=== PATIENT | male | born 1940 ===

== ENCOUNTER 2022-03-28 19:50 | Inpatient (IN) | payer OTHER, MEDICARE ==
[~2022-03-28] VITALS: Ht 177.8 cm; Wt 83.4 kg
[2022-03-28 20:09] LABS: BASOPHILS ABSOLUTE AUTO 0.03 K/mm3 (0.00-0.23); BASOPHILS PERCENT AUTO 0 % (0-2); EOSINOPHILS ABSOLUTE AUTO 0.12 K/mm3 (0.00-0.68); EOSINOPHILS PERCENT AUTO 1 % (0-6); Hematocrit 31.4 % (37.0-53.0); Hemoglobin 11.2 g/dL (13.5-17.5); IMMATURE GRAN ABSOLUTE AUTO 0.15 K/mm3 (0.00-0.10); IMMATURE GRAN PERCENT AUTO 2 % (0-1); LYMPHOCYTES ABSOLUTE AUTO 3.18 K/mm3 (0.84-5.20); LYMPHOCYTES PERCENT AUTO 36 % (21-46); MONOCYTES ABSOLUTE AUTO 0.33 K/mm3 (0.16-1.47); MONOCYTES PERCENT AUTO 4 % (4-13); Mean Corpuscular HGB 33.7 pg (26.0-34.0); Mean Corpuscular HGB Conc 35.7 g/dL (31.5-36.5); Mean Corpuscular Volume 95 fL (80-100); Mean Platelet Volume 10.4 fL (9.1-12.4); NEUTROPHILS ABSOLUTE AUTO 5.14 K/mm3 (1.96-9.15); NEUTROPHILS PERCENT AUTO 58 % (41-73); Platelet Count 265 K/mm3 (150-400); RDW Coefficient Variation 13.2 % (11.7-14.2); RDW Standard Deviation 45.5 fL (35.1-46.3); Red Blood Cell Count 3.32 M/mm3 (4.30-5.90); White Blood Cell Count 8.95 K/mm3 (4.00-11.30)
[2022-03-28 20:24] LABS: Alanine Aminotransfer (ALT/SGP 65 U/L (12-78); Albumin, Blood 3.2 g/dL (3.4-5.0); Albumin/Globulin Ratio 0.9 (0.8-1.8); Alk Phos 64 U/L (50-136); Anion Gap 7 mmol/L (6-16); Aspartate Aminotrans (AST/SGOT 50 U/L (12-37); Bilirubin, Total 0.5 mg/dL (0.1-1.0); Blood Urea Nitrogen 9 mg/dL (8-24); Bun/Creatinine Ratio 12.9 (12.0-20.0); CO2, Blood 27 mmol/L (21-32); Calcium, Blood 9.2 mg/dL (8.5-10.1); Chloride, Blood 100 mmol/L (98-108); Globulin, Blood 3.4 g/dL (2.2-4.0); Glomerular Filtration Rate 93 (60-); Glucose, Blood 241 mg/dL (70-99); Potassium, Blood 3.8 mmol/L (3.5-5.5); Sodium, Blood 134 mmol/L (136-145); Total Protein, Blood 6.6 g/dL (6.4-8.2)
[2022-03-28 20:28] LABS: International Normalized Ratio 1.09; Prothrombin Time Results 11.4 Sec (9.7-11.5)
[2022-03-28 23:05] LABS: Calcium, Ionized (POC) 1.14 mmol/L (1.10-1.46); Chloride (POC) 96 mmol/L (98-108); Creatinine (POC) 0.6 mg/dL (0.8-1.3); Glucose (ISTAT POC) 297 mg/dL (70-99); Hemoglobin (POC) 8.2 g/dL (13.5-17.5); Potassium (POC) 3.7 mmol/L (3.5-5.5); Sodium (POC) 131 mmol/L (135-148); Total CO2 (POC) 22 mmol/L (21-32)
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
--- NOTE | 2022-03-29 02:30 | NUR ---
WORSENING PAIN PATIENT C/O PAIN 10/10 1 HR AFTER RECEIVING FENTANYL 25 MCG IV. CALL MADE TO DR. CAMPOS TO REQUEST NEW ORDERS. ORDERS FOR FENTANYL INCREASE TO 25-50MCG IV Q1H PRN.
[2022-03-29 04:33] LABS: BASOPHILS PERCENT AUTO 0 % (0-2); EOSINOPHILS PERCENT AUTO 0 % (0-6); Hematocrit 20.9 % (37.0-53.0); Hemoglobin 7.4 g/dL (13.5-17.5); IMMATURE GRAN ABSOLUTE AUTO 0.03 K/mm3 (0.00-0.10); IMMATURE GRAN PERCENT AUTO 1 % (0-1); LYMPHOCYTES ABSOLUTE AUTO 0.65 K/mm3 (0.84-5.20); LYMPHOCYTES PERCENT AUTO 11 % (21-46); MONOCYTES ABSOLUTE AUTO 0.37 K/mm3 (0.16-1.47); MONOCYTES PERCENT AUTO 6 % (4-13); Mean Corpuscular HGB 33.2 pg (26.0-34.0); Mean Corpuscular HGB Conc 35.4 g/dL (31.5-36.5); Mean Corpuscular Volume 94 fL (80-100); Mean Platelet Volume 10.3 fL (9.1-12.4); NEUTROPHILS ABSOLUTE AUTO 5.09 K/mm3 (1.96-9.15); NEUTROPHILS PERCENT AUTO 83 % (41-73); Platelet Count 116 K/mm3 (150-400); RDW Coefficient Variation 13.6 % (11.7-14.2); RDW Standard Deviation 46.5 fL (35.1-46.3); Red Blood Cell Count 2.23 M/mm3 (4.30-5.90); White Blood Cell Count 6.14 K/mm3 (4.00-11.30)
[2022-03-29 04:50] LABS: Source, Urine Foley catheter
[2022-03-29 04:59] LABS: Bun/Creatinine Ratio 18.2 (12.0-20.0); Calcium, Blood 7.6 mg/dL (8.5-10.1); Creatinine, Blood 0.5 mg/dL (0.60-1.20)
[2022-03-29 05:00] LABS: Bilirubin, Urine Neg (Neg); Blood, Urine 2+ (Neg); Glucose Qualitative, Urine 4+ (Neg); Ketones, Urine Neg (Neg); Leukocyte Esterase, Urine 1+ (Neg); Nitrite, Urine Neg (Neg); Protein, Urine 1+ (Neg); Urobilinogen, Urine NORM (Normal)
[2022-03-29 05:10] LABS: Appearance, Urine Clear (Clear); Color, Urine Yellow (P-Yellow)
[2022-03-29 05:11] LABS: Bacteria Not Seen /hpf; Red Blood Cells, Urine 0-2 /hpf (0-2); Squamous Epithelial Cells Not Seen /hpf (Few); White Blood Cells, Urine 0-2 /hpf (0-5)
--- NOTE | 2022-03-29 06:00 | NUR ---
ASSUMED CARE REPORT RECEIVED FROM GISSELLE MERAZ. THIS NURSE ASSUMING CARE OF PT. AM LABS RESULTING IN H&H DECREASING, DR. CAMPOS NOTIFIED, NEW ORDERS FOR PRBC'S, FFP, AND PLATELETS, AWAITING PRODUCTS FROM LAB AT THIS TIME. NO CHANGES IN PAIN REPORTED FROM PATIENT, NO OBVIOUS SIGNS OF BLEEDING.
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
[2022-03-29 13:11] LABS: Hematocrit 25.5 % (37.0-53.0); Hemoglobin 9.2 g/dL (13.5-17.5)
[2022-03-29 15:10] LABS: Influenza A, PCR NEGATIVE (NEGATIVE); Influenza B, PCR NEGATIVE (NEGATIVE); Resp Syncytial Virus, PCR NEGATIVE (NEGATIVE); SARS-Cov-2 (COVID-19) PCR, MMC NEGATIVE (NEGATIVE)
--- NOTE | 2022-03-29 15:15 | NUR ---
PT TO OR FAMILY DISCUSSED SURGICAL PLAN WITH SURGEON PRIOR TO PROCEDURE. THEY WOULD LIKE TO BE NOTIFIED WHEN PT RETURNS FROM OR. SURGERY IS EXPECTED TO BE APROX 2 HOURS.
--- NOTE | 2022-03-29 18:24 | NUR ---
PT RETURNED FROM OR WHEEZING WITH O2 SATS AT 81% ON RA UPON RETURN. ORDERS RECEIVED FROM MD FOR DUONEB TREATMENTS PRN. OXYGEN APPLIED VIA NRB AND TRANSITIONED TO A HF NC AT 5L AND O2 SATS INCREASED TO 95%. HOSPITALIST CONSULT PLACED. PT C/O PAIN 10/10 "ALL OVER". MEDICATED WITH FENTANYL 50MCG WITH GOOD RELIEF. FAMILY TO BEDSIDE TO VISIT, UPDATE PROVIDED AND ALL QUESTIONS ANSWERED.
--- NOTE | 2022-03-29 20:46 | NUR ---
ASSUMED CARE AT 1900 PATIENT IS ALERT AND ORIENTED X2-3, ABLE TO STATE SELF, CITY, AND RECOGNIZES FAMILY. UNABLE TO STATE YEAR OR MONTH. 02 SATS 94% ON 3L VIA NC. LS DIMINISHED IN THE BASES. HR PAROXYSMAL A.FIB, 90s. BP STABLE, DENIES CP/PRESSURE. HARRIS PATENT AND DRAINING TO GRAVITY. RIGHT HIP SURGICAL INCISION WITH SCANT SANGUINEOUS DRAININAGE. DRESSING C/D/I. MEDICATED FRO NECK PAIN. PATIENT REPOSITIONED. CALL LIGHT IN REACH. FAMILY AT BEDSIDE AT START OF SHIFT. PATIENT NOW RESTING. SEE SHIFT ASSESSMENT FOR MORE INFORMATION
[2022-03-29] MEDS ORDERED: NUBEQA300 MG PO (21:21)
[2022-03-29] MEDS ORDERED: BICALUTAMIDE50 M1 PO (21:22)
[2022-03-30 03:00] LABS: BASOPHILS PERCENT AUTO 0 % (0-2); EOSINOPHILS PERCENT AUTO 0 % (0-6); Hematocrit 19.1 % (37.0-53.0); Hemoglobin 6.8 g/dL (13.5-17.5); IMMATURE GRAN ABSOLUTE AUTO 0.02 K/mm3 (0.00-0.10); IMMATURE GRAN PERCENT AUTO 0 % (0-1); LYMPHOCYTES ABSOLUTE AUTO 1.26 K/mm3 (0.84-5.20); LYMPHOCYTES PERCENT AUTO 20 % (21-46); MONOCYTES ABSOLUTE AUTO 0.53 K/mm3 (0.16-1.47); MONOCYTES PERCENT AUTO 8 % (4-13); Mean Corpuscular HGB 31.6 pg (26.0-34.0); Mean Corpuscular HGB Conc 35.6 g/dL (31.5-36.5); Mean Platelet Volume 10.5 fL (9.1-12.4); NEUTROPHILS PERCENT AUTO 71 % (41-73); Platelet Count 127 K/mm3 (150-400); RDW Coefficient Variation 17.1 % (11.7-14.2); RDW Standard Deviation 55.3 fL (35.1-46.3); Red Blood Cell Count 2.15 M/mm3 (4.30-5.90); White Blood Cell Count 6.31 K/mm3 (4.00-11.30)
[2022-03-30 03:03] LABS: Mean Corpuscular Volume 89 fL (80-100)
[2022-03-30 03:19] LABS: Albumin, Blood 2.2 g/dL (3.4-5.0); Anion Gap 7 mmol/L (6-16); Blood Urea Nitrogen 15 mg/dL (8-24); Bun/Creatinine Ratio 26.3 (12.0-20.0); CO2, Blood 28 mmol/L (21-32); Calcium, Blood 7.5 mg/dL (8.5-10.1); Chloride, Blood 102 mmol/L (98-108); Creatinine, Blood 0.57 mg/dL (0.60-1.20); Glomerular Filtration Rate 98 (60-); Glucose, Blood 196 mg/dL (70-99); Magnesium, Blood 2.5 mg/dL (1.6-2.4); Phosphorus, Blood 2.8 mg/dL (2.5-4.9); Potassium, Blood 4.3 mmol/L (3.5-5.5); Sodium, Blood 137 mmol/L (136-145)
--- NOTE | 2022-03-30 04:20 | NUR ---
PATIENT HGB BELOW 7 THIS AM, CALLED HOSPITALIST, ORDERS TO TRANSFUSE 1 UNIT PRBCs. NO SIGNS OF BLEEDING, MENTIONED TO HOSPITALIST, POSSIBLE CT ONCE PATIENT IS SEEN BY OLE.
--- NOTE | 2022-03-30 05:27 | NUR ---
SHIFT SUMMARY PATIENT IS ALERT AND ORIENTED X3, FORGETFUL AT TIMES AND UNABLE TO STATE YEAR OR MONTH. 02 SATS 94% ON 3L VIA NC, LS DIMINISHED T/O. HR SR WITH PACs 70-90s, BP HYPOTENSIVE AT TIMES. HARRIS PATENT AND DRAINING DARK YELLOW URINE TO GRAVITY. RIGHT HIP DRESSING C/D/I. 1 UNIT PRBCs INFUSING. REPOSITIONED Q2 HOURS, PATIENTED DECLINED AT TIMES. CALL LIGHT IN REACH.
[2022-03-30 09:06] LABS: Hematocrit 23.5 % (37.0-53.0); Hemoglobin 8.4 g/dL (13.5-17.5)
--- NOTE | 2022-03-30 10:05 | NUR ---
ASSUMED CARE PT IS ALERT AND ORIENTED X 4. PT SPO2 >92% ON 2L NC. MAP >65. PT HAS CLEAR LUNG SOUNDS. LR RUNNING AT 100ML'S. PT WAS RECIEVING ONE PRBC AT TIME OF SHIFT CHANGE W/ NO COMPLICATIONS.
--- NOTE | 2022-03-30 13:58 | NUR ---
UPDATE PT'S BLOOD PRESSURE'S HAVE BEEN SOFTER WITH HR IN THE 90-100'S. WAITING ON 1400 H&H AFTER DISCUSSING WITH GIULIANA PITTS.
--- NOTE | 2022-03-30 14:27 | NUR ---
UPDATE PT GOES TO [facility] IN [place]. NURSE TO CALL TOMORROW TO UPDATE MED HX.
[2022-03-30 14:34] LABS: Hematocrit 22.5 % (37.0-53.0); Hemoglobin 7.9 g/dL (13.5-17.5)
--- NOTE | 2022-03-30 17:23 | NUR ---
SHIFT SUMMARY PT IS ALERT AND ORIENTED. SPO2 >92% ON RA; MAP >65. PT'S SURGICAL DRESSING NOT SATURATED, PEDAL PULSES STRONG, AND HEMODYNAMICALLY STABLE AT THE TIME OF THIS NOTE. PT'S PAIN HAS NOT BEEN AN ISSUE THIS SHIFT, WITH MEDICATING ONLY 3 TIMES WITH 2X NORCO AND 1X 25MCG OF FENTANYL. PT STARTED SHIFT WITH A BLOOD TRANSFUSION W/ THE HGB BEING 8.4 AFTER. EARLY ON IN THE SHIFT THE PT'S BP WAS SOFT AND THE PT WAS SLIGHTLY TACHY AND THE PT'S 1400 H&H SHOWED A DROP TO 7.9. CT OF THE CHEST/PELVIS WAS ORDERED AND A INTRAMUSCULAR HEMORRHAGE WAS OBSERVED BY THE RADIOLOGIST IN THE RIGHT LEG. CHARGE NURSE LOGAN DISCUSSED WITH DR SCHNEIDER WHO SAID TO MONITOR FOR NOW.
--- NOTE | 2022-03-30 17:27 | NUR ---
CT reports to Dr. Chung + Dr. Farr: Call placed to Dr. Chung to discuss repeat CT results, instructed to call Dr. Farr as results concern rt leg/thigh (surgical site/leg). Call placed to Dr. Farr, informed her of CT results, specifically findings to rt leg/thigh. Instructed to continue to monitor and that Dr. Farr will review CT findings to determine if further intervention is needed.
--- NOTE | 2022-03-30 19:00 | NUR ---
ASSUMED CARE/INSULIN AND PAIN MED ORDERS PT A/O X 4. FORGETFUL AT TIMES. FOLLOWING COMMANDS W/ FREQUENT REMINDERS. ON 2L NC TO KEEP SATS GREATER THAN 92%. ALBA SOUNDS CLEAR AND DIM. SBP 90'S. MAP GREATER THAN 65. AFIB 80-120'S. PEDAL PULSES FAINT AND THREADY BUT EQUAL BILAT. SURGICAL DRSG ON R HIP IN PLACE C/D/I. BRUISING AROUND R HIP, R THIGH AND R SIDE OF GROIN NOTED. SCATTERED BRUISING T/O BODY. HYPOACTIVE BT. HARRIS IN PLACE, DRAINING TO GRAVITY. LR AT 100ML/HR. CALL TO DR AL REGARDING CHANGING INSULIN TO ACHS AND INCREASED PAIN MEDICATIONS. ORDERS RECIEVED.
[2022-03-30 19:52] LABS: Hematocrit 21.9 % (37.0-53.0); Hemoglobin 7.6 g/dL (13.5-17.5)
[2022-03-30 23:35] LABS: Hematocrit 21.8 % (37.0-53.0); Hemoglobin 7.5 g/dL (13.5-17.5)
--- NOTE | 2022-03-31 00:46 | NUR ---
HYPOXIA PT C/O 10/10 PAIN, CRYING OUT AND MOANING T/O BEGINING OF SHIFT. MEDICATED PER EMAR. AFTER GIVING MOST RECENT DOSE OF FENTANYL PT BECAME HYPOXIC, DOWN TO 85% SPO2. INCREASED 02 TO 8L VIA NC. SPO2 CURRENTLY 91%.
--- NOTE | 2022-03-31 02:39 | NUR ---
CPAP/XRAY PT TACHYPNEIC W/ SHALLOW BREATHING. SPO2 IN THE LOW 90'S. CONSULTED W/ RT, CPAP RECOMMENDED. ABSENT BREATH SOUNDS IN R MIDDLE AND LOWER LOBES. CALL MADE TO DR AL, ORDERS RECIEVED FOR CPAP AND STAT CHEST XRAY.
[2022-03-31 04:17] LABS: BASOPHILS ABSOLUTE AUTO 0.01 K/mm3 (0.00-0.23); BASOPHILS PERCENT AUTO 0 % (0-2); EOSINOPHILS ABSOLUTE AUTO 0.01 K/mm3 (0.00-0.68); EOSINOPHILS PERCENT AUTO 0 % (0-6); Hematocrit 22.2 % (37.0-53.0); Hemoglobin 7.6 g/dL (13.5-17.5); IMMATURE GRAN ABSOLUTE AUTO 0.05 K/mm3 (0.00-0.10); IMMATURE GRAN PERCENT AUTO 1 % (0-1); LYMPHOCYTES ABSOLUTE AUTO 1.65 K/mm3 (0.84-5.20); LYMPHOCYTES PERCENT AUTO 19 % (21-46); MONOCYTES ABSOLUTE AUTO 0.89 K/mm3 (0.16-1.47); MONOCYTES PERCENT AUTO 10 % (4-13); Mean Corpuscular HGB 31.1 pg (26.0-34.0); Mean Corpuscular HGB Conc 34.2 g/dL (31.5-36.5); Mean Corpuscular Volume 91 fL (80-100); Mean Platelet Volume 11.6 fL (9.1-12.4); NEUTROPHILS ABSOLUTE AUTO 6.23 K/mm3 (1.96-9.15); NEUTROPHILS PERCENT AUTO 70 % (41-73); Platelet Count 167 K/mm3 (150-400); RDW Coefficient Variation 15.9 % (11.7-14.2); RDW Standard Deviation 53.3 fL (35.1-46.3); Red Blood Cell Count 2.44 M/mm3 (4.30-5.90); White Blood Cell Count 8.84 K/mm3 (4.00-11.30)
[2022-03-31 04:41] LABS: Albumin, Blood 2.5 g/dL (3.4-5.0); Albumin/Globulin Ratio 0.9 (0.8-1.8); Bilirubin, Total 1.1 mg/dL (0.1-1.0); Bun/Creatinine Ratio 29.3 (12.0-20.0); Calcium, Blood 7.9 mg/dL (8.5-10.1); Creatinine, Blood 0.78 mg/dL (0.60-1.20); Globulin, Blood 2.8 g/dL (2.2-4.0); Potassium, Blood 4.3 mmol/L (3.5-5.5); Total Protein, Blood 5.3 g/dL (6.4-8.2)
--- NOTE | 2022-03-31 06:23 | NUR ---
SHIFT SUMMARY PT REMAINS CONFUSED AND A/O TO SELF ONLY. COMBATIVE AT TIMES. YELLS OUT. IN BILAT WRIST RESTRAINTS TO KEEP PT FROM PULLING OFF CPAP AND LINES. CALL MADE TO 'LANDEN' WHO CALLED FOR AN UPDATE EARLIER TO NOTIFY HIM OF THE PTS CONDITION, HE DID NOT AWNSER. DRSG CHANGED ON BILAT HANDS. LR INFUSING AT 100ML/HR. HARRIS IN PLACE AND DRAINING TO GRAVITY. 175ML OUTPUT. CPAP IN PLACE AT PRESSURE OF 8. FIO2 25%. SPO2 LOW/MID 90'S. HGB REMAINED STABLE T/O NIGHT W/ NO S/S OF BLEEDING NOTED.
--- NOTE | 2022-03-31 08:00 | NUR ---
INITIAL ASSESSMENT PATIENT ON CPAP AND IN RESTRAINTS WHEN CAME ON SHIFT. PATIENT YELLING UNDER MASK AND VERY UPSET. PATIENT TAKEN OFF CPAP AND PLACED ON 6 L HF NASAL CANNULA. PATIENT IMMEDIATELY CALMED. PATIENT HAS FLAT AFFECT. PATIENT ORIENTED TO SELF, FAMILY, THAT HE WAS IN [facility] AND THAT HE IS IN [facility]. PATIENT DISORIENTED TO TOWN, DATE, TIME. PATIENT LETHARGIC AND WANTING TO SLEEP NOW THAT NOT ON MASK AND OUT OF RESTRAINTS. PATIENT OBEYING SIMPLE COMMANDS AND ABLE TO MOVE ALL EXTREMITIES ALTHOUGH VERY WEAK. SPEECH GARBLED AND QUIET. PATIENT USES CANE TO WALK AROUND AT BASELINE. BLOOD NOTED TO OUTSIDE OF R EYE. PATIENT APPEARS WITHOUT PAIN WHEN AT REST AND HAS PAIN WITH MOVEMENT. PATIENT NOW ON 2 L NC AND REMAINS SATTING 90% AND GREATER. R LOWER LOBES VERY DIMINISHED; ALMOST INAUDIBLE. BREATHS SHALLOW. NO COUGH NOTED. PATIENT IN ST WITH PACS, HR LOW 100S TO 120S. SBP 90S TO 120S. SCD TO L LEG. LEGS EDEMATOUS. HYPOACTIVE BOWEL SOUNDS NOTED. PATIENT NPO SINCE MIDNIGHT PER DR. SCHNEIDER. PATIENT TOO LETHARGIC TO EAT OR DRINK AT THIS TIME ANYWAY. DATE OF LAST BM UNKNOWN. HARRIS DRAINING SMALL AMOUNT OF DARK CLARKE COLORED URINE. SKIN PALE AND COOL. COCCYX REDDENED. DRESSINGS TO R HIP. SCATTERED BRUISES AND SKIN TEARS SCATTERED THROUGHOUT BODY. LR INFUSING AT 100 MLS/ HOUR. BED LOW, CALL LIGHT IN REACH. WILL MONITOR PATIENT FREQUENTLY THROUGHOUT SHIFT.
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
--- NOTE | 2022-03-31 11:01 | NUR ---
Spiritual care visit conducted. Pt is known to this health technical writer. Pt is lying in bed and asleep. Pt wakes up slightly to the sound of his name. He tells me that he is doing "ok" and says, "Yes" to receiving a prayer. I gladly provide prayer. Pt then says, "Amen." and falls back asleep. I will continue to remain available.
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
--- NOTE | 2022-03-31 12:30 | NUR ---
PATIENT SLEEPING SOUNDLY UPON ENTERING ROOM. PATIENT WOKE TO ORAL CARE AFTER NOT WAKING FOR NURSE VOICE. PATIENT SATTING 90% AND GREATER ON 1 L NC. HR IN THE 90S. SBP 1-TEENS TO 120S. CORE TEMP OF 100.2 DEGREE FAHRENHEIT. FAMILY STATES THAT PATIENT HAS HAD PROBLEMS WITH ESOPHAGEAL STRICTURE IN THE PAST. NO OTHER ACUTE CHANGES TO NOTE ON AT THIS TIME.
--- NOTE | 2022-03-31 14:43 | NUR ---
DR. BRANDON CALLED AND UPDATED ON PATIENT STATUS. INFORMED THAT PATIENT YELLING OUT THAT HE WANTS TO GO HOME AND IS RESTLESS IN BED. INFORMED THAT PATIENT APPEARED MUCH MORE COMFORTABLE AFTER TYLENOL SUPPOSITORY. ORDERED FOR FENTANYL PATCH. INFORMED THAT PATIENT SLIGHTLY MORE AWAKE NOW BUT THAT FAMILY INFORMED NURSE THAT PATIENT HAS PAST HISTORY OF ESOPHAGEAL STRICTURE. ORDER FOR SPEECH EVAL OBTAINED. INFORMED THAT PATIENT HAS ONLY HAD ABOUT 100 MLS OF URINE OUT THIS SHIFT. NO ORDER OBTAINED. WILL CONTINUE TO MONITOR.
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
[2022-03-31] MEDS ORDERED: METO25 PO (16:14)
[2022-03-31] MEDS ORDERED: LISI20 PO (16:16)
[2022-03-31] MEDS ORDERED: OMEP20ER PO (16:18)
[2022-03-31] MEDS ORDERED: METF500 PO (16:18)
[2022-03-31] MEDS ORDERED: ASPI81CH PO (16:19)
--- NOTE | 2022-03-31 16:20 | NUR ---
HOME MED REC COMPLETED FROM LIST OBTAINED FROM PCP OFFICE.
--- NOTE | 2022-03-31 16:31 | NUR ---
Spiritual care visit conducted. Pt's son Elliot and Granddaughter are bedside. I establish therapeutic alliance as Elliot talks at length about pt's life, his clear direction that he would not want medical heroic measures and his family unit complications. We talks about family values, history and needs going forward. I provide therapeutic listening, companionship and gentle student counselor. Family respond well and show signs of decreased stress.
--- NOTE | 2022-03-31 19:15 | NUR ---
SHIFT SUMMARY PATIENT REMAINED SLEEPING MOST OF THE SHIFT. PATIENT REMAINED CONFUSED AND LETHARGIC BUT MORE AWAKE IN AFTERNOON. PATIENT HAD TMAX OF 100.4 DEGREES FAHRENHEIT. PATIENT REMAINED ABLE TO FOLLOW SIMPLE COMMANDS. PATIENT STARTED ON PRN TYLENOL SUPPOSITORY AND FENTANYL PATCH TO HELP WITH PAIN BUT WITH TRYING NOT TO KNOCK HIM OUT OR DECREASE O2 LEVELS. PATIENT DECREASED FROM CPAP TO 1 L NC THIS SHIFT AND HAS REMAINED SATTING 90% AND GREATER. PATIENT SR TO ST WITH PACS. HR 80S TO 120S. SBP 90S TO 140S. NO BM THIS SHIFT. PATIENT REMAINED NPO BECAUSE OF LETHARGY. SPEECH EVAL ORDERED AND THEY STATED THEY WILL TRY TO SEE PATIENT AGAIN TOMORROW. HARRIS DRAINED ONLY 245 NLS OF DARK CLARKE COLORED URINE THIS SHIFT; DR. TIDWELL. NO CHANGES TO SKIN NOTED. PATIENT REPOSITIONED THROUGHOUT SHIFT. HIP DRESSINGS REPLACED BY DR. SCHNEIDER. HAND DRESSINGS REPLACED BY THIS NURSE. LR REMAINS INFUSING AT 100 MLS/ HOUR. URINE CULTURE AND BLOOD CULTURES OBTAINED AND SENT TO LAB THIS SHIFT. PT/OT WORKED WITH PATIENT BUT LIMITED BECAUSE OF PAIN WITH MOVEMENT. MED REC COMPLETED FROM PCP OFFICE. BLOOD SUGARS IN 100S THIS SHIFT. MANY FAMILY MEMBERS IN TO VISIT TODAY. REPORT GIVEN TO ASSUMING HAIR MIXER NURSE.
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
[2022-04-01] MEDS ORDERED: QUIN10 (01:47)
[2022-04-01] MEDS ORDERED: FAMO10 (01:51)
[2022-04-01] MEDS ORDERED: BENADRYL25 MG PO (02:00)
[2022-04-01] MEDS ORDERED: ASCO500 PO (02:01)
[2022-04-01] MEDS ORDERED: TOCO1000 (02:06)
[2022-04-01] MEDS ORDERED: MULVITA PO (02:07)
[2022-04-01] MEDS ORDERED: BICALUTAMIDE50 M1 PO (02:08)
[2022-04-01] MEDS ORDERED: LORA10ER PO (02:08)
[2022-04-01] MEDS ORDERED: ELIGARD45 MG SQ (02:09)
[2022-04-01] MEDS ORDERED: NUBEQA300 MG (02:10)
[2022-04-01 04:35] LABS: BASOPHILS ABSOLUTE AUTO 0.02 K/mm3 (0.00-0.23); BASOPHILS PERCENT AUTO 0 % (0-2); EOSINOPHILS ABSOLUTE AUTO 0.01 K/mm3 (0.00-0.68); EOSINOPHILS PERCENT AUTO 0 % (0-6); Hematocrit 21.2 % (37.0-53.0); Hemoglobin 7.1 g/dL (13.5-17.5); IMMATURE GRAN ABSOLUTE AUTO 0.04 K/mm3 (0.00-0.10); IMMATURE GRAN PERCENT AUTO 1 % (0-1); LYMPHOCYTES ABSOLUTE AUTO 1.38 K/mm3 (0.84-5.20); LYMPHOCYTES PERCENT AUTO 19 % (21-46); MONOCYTES ABSOLUTE AUTO 0.68 K/mm3 (0.16-1.47); MONOCYTES PERCENT AUTO 9 % (4-13); Mean Corpuscular HGB Conc 33.5 g/dL (31.5-36.5); Mean Corpuscular Volume 93 fL (80-100); Mean Platelet Volume 11.2 fL (9.1-12.4); NEUTROPHILS ABSOLUTE AUTO 5.31 K/mm3 (1.96-9.15); NEUTROPHILS PERCENT AUTO 72 % (41-73); Platelet Count 200 K/mm3 (150-400); RDW Coefficient Variation 15.5 % (11.7-14.2); RDW Standard Deviation 51.3 fL (35.1-46.3); Red Blood Cell Count 2.29 M/mm3 (4.30-5.90); White Blood Cell Count 7.44 K/mm3 (4.00-11.30)
[2022-04-01 04:49] LABS: Bun/Creatinine Ratio 40.3 (12.0-20.0); Calcium, Blood 7.9 mg/dL (8.5-10.1); Creatinine, Blood 0.62 mg/dL (0.60-1.20); Potassium, Blood 4.1 mmol/L (3.5-5.5)
--- NOTE | 2022-04-01 05:12 | NUR ---
END OF SHIFT SUMMARY PT WAS VERY DROWSY AND C/O PAIN AT BEGINNING OF SHIFT AFTER RECIEVING PAIN MEDS PT RESTED BUT WHEN WAKING PT SEEMED LIKE HE WAS HALLUCINATING AND STARTED TO PULL EVERYTHING OFF. AFTER THE 5TH REPLACEMENT OF LEADS AND TRYING TO REORIENT I CALLED AND LINDEN AND RESTRAINTS WERE ORDERED.AFTER GIVING ZYPREXA PT FELL ASLEEP I WAS ABLE TO TAKE OFF RESTRAINTS. PT SURGICAL HIP WOUND HAS INCREASED DRANAGE AND SATURATED DRESSING AND ROBLES. PT NEED TO SEE SPEACH FOR SWALLOW. HES GETTING LR FOR HYDRATION. HIS T-MAX WAS 100.4 IT IS CURRENTLY 99.3 WITH NO TREATMENT GIVEN. URIN OUTPUT IS DIMINISHED. WILL CONTINUE TO MONITOR AND REPORT OFF TO ON COMING RN
[2022-04-01 07:17] LABS: Source, Urine Foley catheter
[2022-04-01 07:37] LABS: Bilirubin, Urine Neg (Neg); Blood, Urine 1+ (Neg); Glucose Qualitative, Urine Neg (Neg); Ketones, Urine 4+ (Neg); Leukocyte Esterase, Urine 2+ (Neg); Nitrite, Urine Neg (Neg); Protein, Urine 2+ (Neg); Urobilinogen, Urine 2+ (Normal)
[2022-04-01 07:49] LABS: Appearance, Urine Hazy (Clear); Color, Urine Yellow (P-Yellow)
[2022-04-01 07:50] LABS: Bacteria Rare /hpf; Hyaline Casts 0-2 /lpf (0-2); Red Blood Cells, Urine 0-2 /hpf (0-2); Squamous Epithelial Cells Not Seen /hpf (Few)
[2022-04-01 08:13] LABS: Hematocrit 20.8 % (37.0-53.0); Hemoglobin 7.2 g/dL (13.5-17.5)
--- NOTE | 2022-04-01 10:51 | NUR ---
Spiritual care visit conducted. Pt is lying in bed and sleeping. Pt's Grand daughter, Roya, is bedisde. Roya talks about the family unit complications and her concerns about pt's care at home prior to his hospitalization and where he will go from here. She Explains about pt's kindness and how family have taken advantage of this. She tells me about her disre to stay with him at nights to help calm him down when gets aggitated. I provide therapeutic listening, reinforce helpful attitudes and perspectives, encourage self-care and give gentle newspaper delivery counselor. Roya responds well and shows signs of an elevated mood. I will continue to remain available.
--- NOTE | 2022-04-01 11:57 | NUR ---
REASSESSMENT PT'S GRANDDAU ARRIVED AND IS VERY CONCERNED ABOUT PT BEING SEDATED IN THE EARLY MORNINGS SO HE IS SLEEPING DURING THE DAY AND AWAKE AT NIGHT. VALIDATED HER CONCERNS AND REASSURED HER THAT THIS NURSE AND THE RESIDENT HAD TALKED ABOUT EXACTLY THAT AND WORKING TOWARD CORRECTING PT'S SLEEP SCHEDULE. ALSO PROVIDED EDUCATION ON ICU DELIRIUM AND CONFUSION IN THE ELDERLY WHEN THEY ARE IN THE HOSPITAL AND THINGS BEING DONE TO TRY AND HELP PT WITH THOSE. AFTER 1030 TURN PT WOKE UP MORE AND STAYED AWAKE SO GOT PT TO THE CHAIR USING CEILING LIFT AND HE IS SITTING UPRIGHT. NOTIFIED SPEECH THERAPY AND OT THAT PT IS AWAKE AND APPROPRIATE FOR THERAPY. PT IS ALERT AND ORIENTED TO PERSON, PLACE AND DATE. LUNGS ARE CLEAR, DIM IN THE BASES. SR, BP STABLE. HARRIS WITH DARK CLARKE URINE, UA SENT THIS MORNING PER ORDERS. CONTINUING TO MONITOR.
--- NOTE | 2022-04-01 16:56 | NUR ---
Shift Summary Pt has continued to be alert throughout the day, but is noticeably more fatigued this evening after working with physical therapy, occupational therapy and speech therapy. His lungs are clear but very dim. He has a very weak cough and has required suctioning twice this evening to help him clear secretions that he coughed up. his temperature increased to 101.2 this evening so tylenol/hydrocodone given per MAR and speech therapy recommendations. HR has increased with the fever, running in the 1teens currently and up to 130 at times. BP stable. Spoke with Dr. Waggoner, Dr. Chung and Dr. Farr and received ok from all 3 for pt to be PCU status. multiple family members have been at the bedside throughout the day and have been updated.
--- NOTE | 2022-04-01 18:48 | NUR ---
Transfer Pt transferred to [facility]. Report given to GISSELLE Syed. All belongings transported with pt at time of transfer. Multiple family members with pt at time of transfer as well. Pt tolerated transfer well.
[2022-04-02 04:07] LABS: Hematocrit 20.7 % (37.0-53.0); Hemoglobin 6.8 g/dL (13.5-17.5)
[2022-04-02 04:28] LABS: Calcium, Blood 7.5 mg/dL (8.5-10.1); Creatinine, Blood 0.69 mg/dL (0.60-1.20); Potassium, Blood 4.1 mmol/L (3.5-5.5)
--- NOTE | 2022-04-02 06:35 | NUR ---
NOC SHIFT SUMMARY PT WITH LABILE MOOD OVERNIGHT. ORIENTED X1-3. FAMILY AT BEDSIDE AT BEGINNING OF SHIFT AND ASSISTED PT WITH SNACK. PT WITH INCREASING CONFUSION NIGHT WENT ON, PULLING AT LINES AND DRAINS. PLACED ON CAMERA MONITORING. PT DESATS ON NC, APNEA NOTED WITH SLEEP. RT CALLED AND PLACED ON CPAP. PT TOLERATING WELL BUT WOKE UP AROUND 0200 AND BECAME AGRESSIVE, RAISING FISTS AT STAFF, PINCHING, RIPPING OFF TELE LEADS, IVS, AND THROWING THINGS. PT NOT ALLOWING STAFF TO TOUCH HIM. MD NOTIFIED AND IM ZYPREXA ORDERED. PT SLEPT WELL AFTER ADMINISTRATION AND TITRATED DOWN TO 2L NC. ADDITIONALLY NOTIFIED MD OF PERFUSE EDEMA IN ALL EXTREMITIES, FEVER OF 101.8, AND HR IN 120S AT START OF SHIFT. DR. AL ORDERED D/C IVF, IV LASIX X1, IV ABX, INCREASE TYLENOL DOSAGE. PAIN CONTROLLED WITH PRN MEDICATIONS, IV FENTANYL X1 D/T TURNING. R HIP DRESSING WITH SOME SS WEEPING. ASSESSED AND REINFORCED. HR AND TEMP NORMALIZED THIS AM. WILL PASS ON TO DAY RN.
[2022-04-02 14:38] LABS: Hematocrit 24.2 % (37.0-53.0)
--- NOTE | 2022-04-02 15:51 | NUR ---
Care Conference with GISSELLE Syed, pt granddaughter and daughter in law. Family verbalizes multiple frustrations with pt is not receiving IV fluids, pt NPO, pt receiving sedation at night and pt is too drowsey during the day to participate in therapy. Will ask PT/OT to come later today to make another attempt for therapy. Validated family concerns and theraputic listening. This RN and Yahaira RN educated family on pt behaviors at night and why his is receiving Zyprexa in attempts to keep pt calm and safe. Family has expressed that they are willing to stay the night with then patient to help keep him oriented and calm. After consulting with RN and Charge nurse, it is decided that one family member would be allowed to stay with patient with the agreement that they are active in the pts care. Family is agreeable to this. Explained that pt iv fluids were recently dc'd r/t pt was fluid overloaded and received IV lasix and Blood this am r/t hematoma in hip. Family VU. Family also had questions regarding Medical and Finacial POA, provided education and paperwork for both. Family will also have a family meeting to decide which family member will be the one spokesperson to eliminate confusion with nursing staff with POC and communication. Advised I will follow up with them tomorrow. Palliative Care will continue to follow
--- NOTE | 2022-04-02 18:00 | NUR ---
SHIFT SUMMARY; ASSUMED CARE AT 0700, SLEEPING BUT RESPONDS TO PAINFUL STIMULI. HARRIS IN PLACE DRAINING TO GRAVITY. VSS, 2L02 VIA NC. FAMILY UPSET THAT PT RECIEVED ZPREXA. MEETING WITH PALLATIVE CARE RN, THIS RN AND FAMILY SPOKE WITH PRIMARY DOCTOR. PRIVATE BRANCH EXCHANGE OPERATOR ALLOWED 1 FAMILY MEMBER TO STAY THE NIGHT TO ASSIST TO HOPEFULLY AVOID MEDICATIONS IF PT BECOMES COMBATIVE. PT SLEPT UNTIL 1300, MINIMALLY ARROUSABLE IN AFTERNOON. REPOSITIONED Q2. EDEMA TO BLE 3+. RIGHT SURGICAL DRESSING CHANGED AND REINFORCED. SERIOUSANGOUS FLUID SATURATING DRESSING, NON ODOROUS. 1 UNIT PRBC DURING SHIFT. NPO AFTER EVALUATED BY SPEECH THERAPY. FLUIDS RESTARTED BY PRIMARY DOCTOR. WILL CONTINUE TO MONITOR AND TREAT UNTIL CHANGE OF SHIFT.
--- NOTE | 2022-04-02 18:06 | NUR ---
UPDATE/FAMILY CONVERSATION- Pt son came into room and upset and wanting an update. Multiple family members in the room that had already been given updates. Informed Son, and all family members, that updates were given to the family in the room and that this update can be passed on. Informed them that their RN is currently with another patient. Also asked if a decision was made as to who the spokesperson for the family will be. Family very aggitated, one son stating "why am I even here then". Encouraged them to be here for support of patient, and each other. Other family member also visibly angry/aggitated. [id number] making comments and stated "we are here because we are the ones who notice when his IV is out, or when he is bleeding, and put the blood pressure cuff back on." Another family member stated that "that cuff wasn't even on right". Explained that it is a radial cuff and on where it is suppose to be. Also addressed the concerns about having family here at night and that we would allow one family member to stay and assist with keeping pt calm and providing care. Daughter-in law continued to make statements. When I tried to explain the reasoning for her concerns she stood up quickly and walked out stating "I can't listen to this, I don't like her." (refuring to this RN). At this point I decided to enforce the visitor policy. I informed them 2 visitors at a time in the hospital with one family member at night to help provide care. Also told them to decide on spokesperson and that is who would be updtated. Explained this hospital will not tolerate aggressive family toward staff. All family members left except grand-daughter. Further explained to grand daughter that we do have the best interest of the patient in mind, that we want what is best, we want him awake, healing, participating and getting well. Grand-daughter seemed receptive. Call light in reach.
--- NOTE | 2022-04-02 19:00 | NUR ---
ASSUMED CARE PT A/O TO SELF AND FAMILY ONLY. FOLLOWS SIMPLE DIRECTIONS. LUNG SOUNDS CLEAR IN UPPER AND DIM IN LOWER. ON 2L NC. SATS GREATER THAN 92%. SR 90'S. SBP 100'S. PEDAL PULSES FAINT. EDEMATOUS IN ALL EXTREMITIES, NON-PITTING. SCATTERED BRUISING T/O BODY. R HIP INCISION CLEAN WITHOUT REDNESS, HEAT OR SWELLING IN RELATION TO SITE. HARRIS IN PLACE, DRAINING TO GRAVITY. FAMILY AT BEDSIDE. EDUCATED ON GOALS OF CARE, PLAN FOR NIGHT, DISEASE PROCESS AND VISITOR GUIDLINES.
--- NOTE | 2022-04-02 19:45 | NUR ---
CALL TO MD DR AL NOTIFIED OF TEMP 101.3, NPO STATUS, AND MEDS BEING PO. DR AL ORDERED BEDSIDE SWALLOW EVAL. PT PASSED SWALLOW EVAL AND MEDS GIVEN PO PER EMAR.
[2022-04-03 04:02] LABS: BASOPHILS ABSOLUTE AUTO 0.03 K/mm3 (0.00-0.23); BASOPHILS PERCENT AUTO 1 % (0-2); EOSINOPHILS ABSOLUTE AUTO 0.13 K/mm3 (0.00-0.68); EOSINOPHILS PERCENT AUTO 2 % (0-6); Hematocrit 22.2 % (37.0-53.0); Hemoglobin 7.5 g/dL (13.5-17.5); IMMATURE GRAN ABSOLUTE AUTO 0.04 K/mm3 (0.00-0.10); IMMATURE GRAN PERCENT AUTO 1 % (0-1); LYMPHOCYTES ABSOLUTE AUTO 1.42 K/mm3 (0.84-5.20); LYMPHOCYTES PERCENT AUTO 23 % (21-46); MONOCYTES ABSOLUTE AUTO 0.55 K/mm3 (0.16-1.47); MONOCYTES PERCENT AUTO 9 % (4-13); Mean Corpuscular HGB 32.5 pg (26.0-34.0); Mean Corpuscular HGB Conc 33.8 g/dL (31.5-36.5); Mean Corpuscular Volume 96 fL (80-100); Mean Platelet Volume 10.3 fL (9.1-12.4); NEUTROPHILS ABSOLUTE AUTO 4.02 K/mm3 (1.96-9.15); NEUTROPHILS PERCENT AUTO 65 % (41-73); NRBC ABSOLUTE 0.03 K/mm3 (0.00-0.02); NRBC Auto 0.5 /100 WBC (0.0-0.2); Platelet Count 183 K/mm3 (150-400); RDW Coefficient Variation 15.2 % (11.7-14.2); RDW Standard Deviation 50.4 fL (35.1-46.3); Red Blood Cell Count 2.31 M/mm3 (4.30-5.90); White Blood Cell Count 6.19 K/mm3 (4.00-11.30)
[2022-04-03 04:28] LABS: Bun/Creatinine Ratio 42.7 (12.0-20.0); Calcium, Blood 7.4 mg/dL (8.5-10.1); Creatinine, Blood 0.52 mg/dL (0.60-1.20)
--- NOTE | 2022-04-03 06:06 | NUR ---
SHIFT SUMMARY PT SLEPT T/O NIGHT. TMAX 101.6. TYLENOL GIVEN AND CURRENT TEMP 98.6. TURNED Q2. FAMILY IN ROOM T/O NIGHT, COOPERATIVE, PLEASENT AND HELPFUL W/ CARE.
[2022-04-03 06:38] LABS: Phosphorus, Blood 3.4 mg/dL (2.5-4.9)
[2022-04-03 11:37] LABS: Hematocrit 25.6 % (37.0-53.0); Hemoglobin 8.6 g/dL (13.5-17.5)
--- NOTE | 2022-04-03 17:52 | NUR ---
SHIFT SUMMARY; ASSUMED CARE AT 0700, WAKES TO VERBAL STIMULI AND STAYS AWAKE MOST OF SHIFT. Q2 TURNS, DRESSING CHANGE TO RIGH HIP, SLICK INTACT, WEAPING NON ODOUROUS SERIOUSANGIOUS FLUID. WORKED WITH PT/OT/ST TODAY. BARIUM SWALLOW TODAY, NPO PER SPEECH WITH MEDS CRUSHED IN APPLESAUCE OK. DOBHOFF AND TUBE FEEDING ORDERED. ATTEMPTED DOBHOFF, 2 UNSUCCESSFULL ATTEMPTS. PT STATED DOES NOT WANT TO CONTINUE TO ATTEMPT ANYMORE BUT WILL ATTEMPT AGAIN TOMORROW MORNING. BED BATH COMPLETE TODAY WITH BED AND LINEN CHANGE. VSS, 2L O2 VIA NC. WILL CONTINUE TO MONITOR AND TREAT UNTIL CHANGE OF SHIFT.
--- NOTE | 2022-04-03 19:15 | NUR ---
ASSUMED CARE OF PT @1900. BEDSIDE REPORT. PATIENT HAS MULTIPLE FAMILY MEMBERS PRESENT AT BEDSIDE. PT IS ALERT AND MAKING CONVERSATION. DIFFICULT TO UNDERSTAND AT TIMES. ORIENTED TO SELF, FAMILY, AND SITUATION. PT ON 2L O2 VIA NC. HARRIS CATH PATENT AND DRAINING TO GRAVITY. SCD'S ON LOWER EXTREMETIES.
--- NOTE | 2022-04-03 21:30 | NUR ---
DOBHOFF PT AGREED TO PLACING DOBHOFF. INSERTED DOBHOFF INTO LEFT NARE TO APPROXIMATELY 60CM BEFORE NOTING THAT IT WAS CURLING UP IN BACK OF THROAT. TUBE PULLED BACK AND REINSERTED BACK TO APPROXIMATELY 50CM BEFORE PT BECAME AGITATED AND ATTEMPTED TO PULL IT OUT. PORTABLE CXR DONE TO CHECK PLACEMENT- PER DR. AL, TUBE NEEDED TO BE ADVANCED AT LEAST 5-7CM. AT 2120, TUBE WAS ADVANCED 6CM WITH PT BECOMING AGITATED AGAIN. SECOND CXR SHOWS THAT TUBE IS STILL NOT IN ADEQUATE POSITION. AFTER DISCUSSING WITH DR. AL, PLAN IS TO PULL OUT TUBE AND INFUSE D5NS AT 75CC/HR TONIGHT. TUBE WAS PULLED OUT AND NOTED TO BE SLIGHTLY KINKED. WILL RE-EVALUATE IN AM.
[2022-04-04 03:50] LABS: Hemoglobin 7.6 g/dL (13.5-17.5)
[2022-04-04 04:13] LABS: Albumin, Blood 1.9 g/dL (3.4-5.0); Anion Gap 5 mmol/L (6-16); Blood Urea Nitrogen 19 mg/dL (8-24); Bun/Creatinine Ratio 41.1 (12.0-20.0); CO2, Blood 28 mmol/L (21-32); Calcium, Blood 7.6 mg/dL (8.5-10.1); Chloride, Blood 109 mmol/L (98-108); Creatinine, Blood 0.46 mg/dL (0.60-1.20); Glomerular Filtration Rate 105 (60-); Glucose, Blood 167 mg/dL (70-99); Potassium, Blood 3.8 mmol/L (3.5-5.5); Sodium, Blood 142 mmol/L (136-145)
--- NOTE | 2022-04-04 06:24 | NUR ---
SUMMARY NO ACUTE EVENTS THROUGHOUT SHIFT. PT AWOKE ONCE DURING THE NIGHT CONFUSED AND DISORIENTED. PT REORIENTED AND CALMED. SLEPT COMFORTABLY REMAINDER OF THE NIGHT. 2L O2 VIA NC. RR 16. SPO2 >92%. HR 90-110. SPB 130-150'S. MAP >65. IV FLUIDS INFUSING. CBG Q6. PT NEEDED COVERAGE THROUGHOUT NIGHT. HARRIS PATENT AND DRAINING DARK YELLOW URINE TO GRAVITY.
[2022-04-04 10:24] LABS: Hematocrit 24.9 % (37.0-53.0); Hemoglobin 8.1 g/dL (13.5-17.5)
--- NOTE | 2022-04-04 10:42 | NUR ---
Spiritual care visit conducted. Pt is resting in bed but easily awakens to the sound of guitar. Pt was a professional musician, marroquin/songwriter. He played and sang for me while his grand daughter was hospitalized and now I sang and played guitar for him. He was clearly moved by and was tearful at times. He perked up and could not say enough postive affirmations about the songs I wrote and performed. We had a deep conversation about his desire to go to [facility] and be with his again and that he feels his time on earth is growing short. He states he feels ready to and that he has done all he needs to do for his family and friends. He shares his concern about being a burden to the family and that he wants to live out his yrs at his home. I listen empathically, provide music type therapy, gentle counseling center director and prayer. Pt responds well and shows signs of increased peace. I will continue to remain available.
--- NOTE | 2022-04-04 14:59 | NUR ---
NO ACUTE EVENTS THIS HALF OF SHIFT. PT WAS DIFFICULT TO AROUSE THIS MORNING, HOWEVER BECAME MORE ALERT BY THIS AFTERNOON. PT'S GRANDDAUGHTER AT BEDSIDE THIS AFTERNOON, PT ABLE TO TALK WITH HER AND FOLLOW COMMANDS. PT WORKED WITH SPEECH THERAPY, PT AND OT. WAS ABLE TO STAND UP FROM BED FOR SHORT PERIOD OF TIME WITH X2 ASSIST AND GAIT BELT WITH PT/OT. R HIP DRESSING CHANGED THIS MORNING, NO REDNESS OR SWELLING AT THE SITE. CARE MEETING TOOK PLACE AT BEDSIDE WITH PALLIATIVE CARE, BOTH DR. BRANDON AND DR. JACKSON, AND PARKING ENFORCEMENT SPECIALIST PRESENT. CARE PLAN DISCUSSED, WELL PLANNING REGARDING NUTRITION. FAMILY QUESTIONS ANSWERED TO SATISFACTION. ANOTHER ATTEMPT WAS MADE FOR DOBHOFF PLACEMENT THIS AFTERNOON BY [facility] ICU BOAT DRIVER. WILL ATTEMPT AGAIN TOMORROW AND START PARENTERAL NUTRITION TODAY. REPORT GIVEN TO CARL PITTS ON SURGICAL. PT TO TRANSFER TO SURGICAL.
--- NOTE | 2022-04-04 18:34 | NUR ---
TRANSFER: REPORT RECEIVED FROM JAH BORGESU RN. PT TO ROOM 221 AT ABOUT 1545. PT A/O , FORGETFUL, VSS. PT FAMILY AT BEDSIDE. TELE DC'D PER ORDER. SCD'S IN PLACE. PT DENIES PAIN AT THIS TIME. CALL LIGHT IN REACH , WILL CTM.
--- NOTE | 2022-04-04 18:38 | NUR ---
SUMMARY: NO ACUTE CHANGE SINCE TRANSFER. PT REPOSTIONED FOR COMFORT. PPN STARTED. DRESSING CHANGED AT R HIP SURGICAL SITE. SMALL AMT OF SS DRAINAGE PRESENT, NEW AQUACEL NOW CDI. NO ACUTE SAFETY CONCERNS AT THIS TIME. WILL REPORT TO NOC RN
--- NOTE | 2022-04-05 07:23 | NUR ---
PT VS TAKEN THIS AM; NOT ENTERED DUE TO INACCURATE MEASUREMENT RELATED TO PT AGITATION AND HALLUCINATIONS OF HIS CHILDREN. PT UNABLE TO RELAX AND REFUSING SECOND ATTEMPT. PT REFUSED ALL LABS AND BLOOD SUGAR CHECKS THIS MORNING BY SAYING "NO MORE POKES" WHEN ASKED IF HIS CBG COULD BE CHECKED. ORDER OBTAINED FOR 1 MG IV HALDOL TO HELP PT ANXIETY. HIS BP WAS 203/102 WHEN AGITATED AND NOT FOLLOWING DIRECTIONS.
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
[2022-04-05 13:26] LABS: Hematocrit 26.4 % (37.0-53.0); Hemoglobin 8.6 g/dL (13.5-17.5)
--- NOTE | 2022-04-05 14:11 | NUR ---
DR. SHUKLA ATTEMPTED TO PLACE DOBHOFF, UNABLE TO PLACE. PALLIATIVE CARE RN JUDITH QUINONES CONTACTED TO DISCUSS OPTIONS WITH PT AND FAMILY.
--- NOTE | 2022-04-05 15:18 | NUR ---
ELEVATED BLOOD PRESSURE DR. BRANDON NOTIFIED OF ELEVATED BP OF 176/98. WAITING FOR ORDERS TO BE PLACED. DR. BRANDON WAS ALSO NOTIFIED THAT DR. SHUKLA WAS UNABLE TO PLACE THE DOBHOFF TUBE.
--- NOTE | 2022-04-05 15:21 | NUR ---
FAMILY BACK TO THE ROOM. PALLIATIVE CARE NOTIFIED.
--- NOTE | 2022-04-05 16:59 | NUR ---
Multiple family members at bedside. They state pt's granddaughter and son are primary decision makers. Spent approximately an hour with them today answering questions and providing therapeutic listening as the granddaughter voiced multiple issues that she states have been resolved, but she is forthcoming that she does feel distrust of hospital staff in general, and she states she has heard different things from different nurses. We walked through each example, and between reading the notes and talking to family, was able to bring each concern to resolution. Pt's son is now at bedside and verbalizes understanding that pt has been through a great ordeal. Provided book: [employer] Choices for [employer] for family to look through, hoping this will give at least better understanding and some peace of mind through this process. Staff have attempted [address] with no success. According to the notes, it may be due to hiatal hernia. However, surgical consult has been placed by Dr. Romero for possible feeding tube. Pt is currently on parenteral nutrition via IV. Has failed swallow evals this far. Pt appears to be sleeping during my visit.
--- NOTE | 2022-04-05 17:24 | NUR ---
SHIFT SUMMARY PT IS POD#7 FOR R HIP RODDING WITH DR. SCHNEIDER. PT WAS DROWSY THIS MORINING AND DID AWAKE TO VERBAL STIMULI FOR NURSING STAFF. PT ORIENTED TO HIMSELF, FAMILY, FOLLOWING DIRECTIONS AND LOCATION. PT HAS REQUIRED ASSISTANCE WITH REPOSITIONING. FAMILY HAS BEEN AT THE BEDSIDE FOR SUPPORT. PALLIATIVE CARE SAW PT TODAY AFTER ATTEMPT TO PLACE DOBHOFF TUBE. PLAN TO CONTINUE PPN AT THIS TIME. WILL MONITOR UNTIL REPORT TO NOC RN.
--- NOTE | 2022-04-05 18:38 | NUR ---
PT IS AWAKE AND ALERT VISITING WITH FAMILY. HIS PAIN IS MANAGED WITH TORADOL. PT'S VOICE/SPEECH IS MORE CLEAR THIS AFTERNOON, FAMILY STATED HIS SPEECH SOUNDS CLEARER AND MORE NORMAL THIS EVENING.
--- NOTE | 2022-04-06 05:22 | NUR ---
SHIFT SUMMARY A/O X2-3, FORGETFUL AT TIMES. BEDREST THROUGHOUT SHIFT, Q2H TURNS W/ LIMBS ELEVATED ON PILLOWS. HARRIS DRAINING TO GRAVITY. VITAL SIGNS STABLE. PPN CONTINUOUS THROUGHOUT SHIFT. PAIN MANAGED W/ IV TORADOL. WILL CONTINUE TO MONITOR AND REPORT TO ONCOMING RN.
[2022-04-06 05:30] LABS: Hematocrit 27.6 % (37.0-53.0); Hemoglobin 9.1 g/dL (13.5-17.5)
[2022-04-06 05:55] LABS: Bun/Creatinine Ratio 54.6 (12.0-20.0); Calcium, Blood 8.1 mg/dL (8.5-10.1); Creatinine, Blood 0.42 mg/dL (0.60-1.20); Magnesium, Blood 1.8 mg/dL (1.6-2.4); Phosphorus, Blood 1.7 mg/dL (2.5-4.9); Potassium, Blood 3.6 mmol/L (3.5-5.5)
--- NOTE | 2022-04-06 17:04 | NUR ---
Met with pt at bedside this am. He was easily arousable, alert and pleasant. He reported moderate pain in L side. Family arrived toward the end of our visit. We didn't dicuss tube feeding today, as pt was focused on and appeared to be thoroughly enjoying interacting with the youngest grandchild. He told me, "This is my sweet baby". No news yet on the surgical consult for possible PEG placement. Pt continues receiving parenteral nutrition for now. Family continues to remain hopeful, encouraging pt to remain awake while visiting with them so as not to get his days and nights mixed up. Palliative will continue to work with both pt and family.
--- NOTE | 2022-04-06 19:41 | NUR ---
SHIFT SUMMARY PT WAKES EASILY, PLEASANT AND COOPERATIVE WITH CARE. POD8 R HIP REPAIR, AQUACEL CHANGED TODAY. NPO, GOPAL SMALL SIPS THICKENED H20 WITH SPOON, DYSPHAGIA PREC. IV PPN INFUSING PER EMAR. PAIN TREATED WITH TORADOL. REPOSITIONED/FULL ASSIST WITH MOVEMENT. REPORT PROVIDED TO FEMI PITTS.
[2022-04-07 05:36] LABS: BASOPHILS ABSOLUTE AUTO 0.04 K/mm3 (0.00-0.23); BASOPHILS PERCENT AUTO 0 % (0-2); EOSINOPHILS ABSOLUTE AUTO 0.45 K/mm3 (0.00-0.68); EOSINOPHILS PERCENT AUTO 5 % (0-6); Hematocrit 29.7 % (37.0-53.0); Hemoglobin 9.6 g/dL (13.5-17.5); IMMATURE GRAN ABSOLUTE AUTO 0.09 K/mm3 (0.00-0.10); IMMATURE GRAN PERCENT AUTO 1 % (0-1); LYMPHOCYTES ABSOLUTE AUTO 1.83 K/mm3 (0.84-5.20); LYMPHOCYTES PERCENT AUTO 21 % (21-46); MONOCYTES ABSOLUTE AUTO 0.65 K/mm3 (0.16-1.47); MONOCYTES PERCENT AUTO 7 % (4-13); Mean Corpuscular HGB 31.9 pg (26.0-34.0); Mean Corpuscular HGB Conc 32.3 g/dL (31.5-36.5); Mean Corpuscular Volume 99 fL (80-100); Mean Platelet Volume 10.4 fL (9.1-12.4); NEUTROPHILS ABSOLUTE AUTO 5.86 K/mm3 (1.96-9.15); NEUTROPHILS PERCENT AUTO 66 % (41-73); Platelet Count 331 K/mm3 (150-400); RDW Coefficient Variation 17.6 % (11.7-14.2); RDW Standard Deviation 58.1 fL (35.1-46.3); Red Blood Cell Count 3.01 M/mm3 (4.30-5.90); White Blood Cell Count 8.92 K/mm3 (4.00-11.30)
[2022-04-07 06:17] LABS: Albumin, Blood 2.1 g/dL (3.4-5.0); Anion Gap 8 mmol/L (6-16); Blood Urea Nitrogen 24 mg/dL (8-24); Bun/Creatinine Ratio 52.5 (12.0-20.0); CO2, Blood 25 mmol/L (21-32); Calcium, Blood 8.1 mg/dL (8.5-10.1); Chloride, Blood 103 mmol/L (98-108); Creatinine, Blood 0.46 mg/dL (0.60-1.20); Glomerular Filtration Rate 105 (60-); Glucose, Blood 167 mg/dL (70-99); Magnesium, Blood 2.3 mg/dL (1.6-2.4); Potassium, Blood 3.8 mmol/L (3.5-5.5); Sodium, Blood 136 mmol/L (136-145)
--- NOTE | 2022-04-07 06:19 | NUR ---
SHIFT SUMMARY A/O X3- BEDREST THROUGHOUT SHIFT. POD9 R HIP RODDING- AQUACEL IN PLACE, SCANT AMOUNT OF DRAINAGE. PPN RUNNING CONTINUOUSLY DUE TO ASPIRATION RISK, TOLERATED 2 BITES OF APPLESAUCE AND SPOONFULS OF THICKENED H20 THIS EVENING W/ NO COUGHING. HARRIS DRAINING TO GRAVITY. LITTLE PAIN REPORTED THROUGHOUT SHIFT, MANAGED W/ IV TORADOL. NO BOWEL MOVEMENT THIS SHIFT, PT REPORTS PASSING FLATUS. PLEASANT AND COOPERATIVE W/ CARE. WILL CONTINUE TO MONITOR AND REPORT TO ONCOMING RN.
--- NOTE | 2022-04-07 08:29 | NUR ---
MORNING MEDS UNABLE TO TAKE ANY MEDS. CRUSHED MEDS IN SMALL AMOUNT OF APPLESAUCE. EVEN w/ SMALL AMOUNT OF SAUCE & HOB UP ALL THE WAY BEGAN COUGHING. MD INFORMED NO MORNING MEDS WERE GIVEN.
--- NOTE | 2022-04-07 12:21 | NUR ---
Met with PT, OT and RN outside pt room. Pt articipated in therapy, doing ok but still very weak and fatigues easily. Pt was able to stand with assistance. Pt had a repeat swallow eval, and is NPO. Pt continues to have diff with swallowing and speaking. CT performed yesterday showed a CVA. Pt continues to have confusion at night, family has not been able to stay with the pt at night. Pt sleeping a lot suring the day, will awaken easily with verbal stimulation and interact. RN reports there has been a lot of questions and intense interactions between famly and care staff over the weekends. Regina attempts to place dobhoff without success. Upon entering the room, pt is sleeping in bed, just had therapy. Pt face is relaxed, breathing is even and unlabored and appears to be comfortable. Pt is alone, no family yet today. Pt moving all ext in bed and positioning both arms for comfort. IV fluids are infusing. Pt PPS: 30% Will continue to follow pt and support family.
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
--- NOTE | 2022-04-07 19:19 | NUR ---
SHIFT SUMMARY PT WAS ABLE TO DANGLE w/ THERAPY TODAY. DENIES PAIN UNTIL THIS AFTERNOON WHEN MEDICATED w/ TORADOL. FAMILY MEETING TODAY & NEW GOAL OF HAVING A PEG TUBE PLACED MADE. GEN SURGEON ARCHITECTURAL DESIGN LECTURER NOTIFIED. HAS REMAINED NPO T/O SHIFT SINCE THIS AM w/ TRIAL (SEE PREV NOTE). PPN INFUSING.
--- NOTE | 2022-04-08 04:38 | NUR ---
SHIFT SUMMARY POD10 R HIP RODDING WITH MODERATE PAIN AND DISCOMFORT WHICH WAS MANAGED WITH TORADOL. PT SLEPT LAST NIGHT BUT THIS MORNING (AFTER MIDNIGHT) HE STARTED TO GET AGITATED, HALLUCINATIONS, AND DISTRESS. ZYPREXA 2.5MG WAS GIVEN VIA IM PER MD ORDER FOR ONE TIME DOSE WITH IMPROVEMENT. HYPTERTENSIVE WELL, MEDICATED WITH HYDRALAZINE IV 10MG WITH BP IMPROVEMENT. PT ALSO REPORTS NAUSEA, MEDICATED ZOFRAN X1. STRICT NPO. PLAN FOR PEG TUBE PLACEMENT. BED ALARM FOR SAFETY. BED IN LOW POSITION. CALL LIGHT WITHIN REACH. WILL PROVIDE REPORT TO ONCOMING NURSE.
--- NOTE | 2022-04-08 07:50 | NUR ---
MORNING MEDS STRICT NPO PER SPEECH THERAPY. NO AM MEDS GIVEN.
--- NOTE | 2022-04-08 16:12 | NUR ---
Spiritual care visit conducted. Pt tells me that he is frustrated by not having the procedure done so far today and so I ask him if he would like to hear some guitar music (pt agrees to it). I get my guitar and pt tries to pick a little but struggles. His son, Elliot, takes the guitar and plays well and pt begins to smile and talk more. He asks me to play and so I play guitar and sing some songs for him. Pt and family voice their praise and appreciation. Pt is clearly energized and encouraged by it. Then pt's RN tells him that the procedure will be tomorrow and pt becomes frustrated all over. He enjoyed a few minutes of lacy and distraction.
--- NOTE | 2022-04-08 18:40 | NUR ---
SHIFT SUMMARY PT HAS BEEN DROWSY T/O SHIFT BUT DID AROUSE FOR FAMILY. WASN'T ABLE TO DO MORE THAN BED EXCERISES w/ THERAPY. WAS KNOCKER OUT FOR PEG TUBE PLACEMENT BUT WASN'T ABLE TO HAPPENED. HOPEFUL FOR PLACEMENT TOMORROW. STRICT NPO & ORAL HYGIENE COMPLETED.
--- NOTE | 2022-04-08 19:07 | NUR ---
Review of plan of care with supply and distribution manager.
--- NOTE | 2022-04-08 22:40 | NUR ---
UPON ENTERING THE ROOM THE RUBBER CALENDER HELPER INFORMED ME THAT THE PATIENT HAD EXPRESSED THAT HE DOES NOT WANT THE PEG TUBE PLACEMENT TO HAPPEN TOMORROW. WHEN I ASKED THAT PATIENT ABOUT THIS HE EXPRESSED TO ME THAT HE FELT VERY HESITENT ABOUT THIS PROCEEDURE DUE TO HIS CURRENT STATE OF HEALTH. THE PATIENT SAID THAT HE FELT IF THE PEG TUBE WOULDNT ULTIMATELY HELP HIS CONDITION AND IMPROVE HIS QUALITY OF LIFE. I EDUCATED THE PATIENT ABOUT EXPRESSING THESE CONCERNS TO THE SURGEON AND FAMILY IN THE MORNING BEFORE SURGERY.
--- NOTE | 2022-04-09 04:06 | NUR ---
POD11 FOR A NAILING OF THE RIGHT HIP. AQUACEL DRESSING REMAINS INTACT, MINIMAL DRAINAGE NOTED. CIRCULATION AND SENSATION REMAINS INTACT. VSS. THE PT WAS ABLE TO SLEEP MOST OF THE NIGHT. ORDER OBTAINED FOR IM XYPREXA TO TREAT THE PATIENTS ANXIETY, FAVORABLE RESULTS NOTED. PAIN AND NAUSEA TREATED WITH PRN'S. PT REMAINED NPO T/O THE NIGHT. PT TOLLERATED BEING REPOSITIONED MULTIPLE TIMES T/O THE NIGHT. THE PT EXPERIENCED GENERALIZED WEAKNESS T/O THE NIGHT, UNABLE TO PICK ARMS UP OR MOVE LEGS INDEPENDENTLY. WIDESPREAD EDEMA NOTED, +2 [address] ALONG WITH NONPITTING EDEMA NOTED IN THE BUE. COUGHING NOTED T/O THE NIGHT, WEAK AND NONPRODUCTIVE. PT UNABLE TO CLEAR DEEP SECREATIONS. PT EXPRESSED T/O THE SHIFT THAT HE DID NOT WANT TO HAVE THE PEG TUBE PLACED TODAY HE FELT IT WOULD NOT IMPROVE HIS QUALITY OF LIFE OR CONDITION, SEE PREVIOUS NOTE. HARRIS REMAINS PATENT. THE PATIENT IS CURRENTLY RESTING, IN NO DISTRESS. CALL LIGHT IN REACH AND BED ALARM ON FOR SAFETY.
[2022-04-09 05:50] LABS: Hematocrit 27.2 % (37.0-53.0); Mean Corpuscular HGB 33.1 pg (26.0-34.0); Mean Corpuscular HGB Conc 33.1 g/dL (31.5-36.5); Mean Corpuscular Volume 100 fL (80-100); Mean Platelet Volume 10.6 fL (9.1-12.4); Platelet Count 331 K/mm3 (150-400); RDW Coefficient Variation 17.5 % (11.7-14.2); RDW Standard Deviation 61.6 fL (35.1-46.3); Red Blood Cell Count 2.72 M/mm3 (4.30-5.90); White Blood Cell Count 8.59 K/mm3 (4.00-11.30)
[2022-04-09 06:23] LABS: Calcium, Blood 7.8 mg/dL (8.5-10.1); Creatinine, Blood 0.46 mg/dL (0.60-1.20); Magnesium, Blood 1.8 mg/dL (1.6-2.4); Phosphorus, Blood 3.1 mg/dL (2.5-4.9); Potassium, Blood 4.1 mmol/L (3.5-5.5)
--- NOTE | 2022-04-09 12:30 | NUR ---
PEG TUBE AFTER PT HAD TOLD 3 DIFFERENT PEOPLE, AT DIFFERENT TIMES, THAT HE DIDN'T WANT THE PEG TUBE. DECISION WAS MADE TO HAVE ANOTHER FAMILY MEETING. THIS RN CALLED SON's AROUND 0900 & FAMILY SHOWED UP AT 11:30. 'irasema CAME TO ROOM SOON AFTER & AFTER DISCUSSION PT CHANGED HIS MIND. DR ARREGUIN NOTIFED OF PT's WISH FOR PEG TUBE.
--- NOTE | 2022-04-09 18:40 | NUR ---
SHIFT SUMMARY WAS DROWSY THIS MORNING BUT AROUSED EASILY & ANSWERS ?'s APPROP; MORE ALERT THIS AFTERNOON & WAS EVEN MAKING A COUPLE JOKES. ASKS FOR FOOD REPEATEDLY; EXPLAINED SEVERAL X's REASON. DR ARREGUIN BY TODAY TO SEE PT; HOPEFUL FOR PEG TUBE PLACEMENT TOMORROW.
--- NOTE | 2022-04-10 05:25 | NUR ---
SHIFT SUMMARY: PT RESTED T/O THE NIGHT. REPOSITIONED FREQUENTLY FOR COMFORT. A&OX2-3. PLEASANTLY CONFUSED AT TIMES. ANSWERED APPRIPRIATELY TO MOST QUESTIONS. PPN REMAINS RUNNING AT THIS TIME. STRICT NPO. PLANS FOR PEG TUBE PLACEMENT HOPEFULLY TODAY. GENERALIZED EDEMA T/O, ESPECIALLY IN THE BLE AND BUE. REMAINS LIFT ASSIST.
[2022-04-10 05:45] LABS: Hematocrit 27.2 % (37.0-53.0); Hemoglobin 8.9 g/dL (13.5-17.5); Mean Corpuscular HGB Conc 32.7 g/dL (31.5-36.5); Mean Corpuscular Volume 98 fL (80-100); Mean Platelet Volume 10.5 fL (9.1-12.4); Platelet Count 425 K/mm3 (150-400); RDW Coefficient Variation 17.2 % (11.7-14.2); RDW Standard Deviation 61.1 fL (35.1-46.3); Red Blood Cell Count 2.78 M/mm3 (4.30-5.90); White Blood Cell Count 9.07 K/mm3 (4.00-11.30)
[2022-04-10 06:11] LABS: Bun/Creatinine Ratio 65.6 (12.0-20.0); Calcium, Blood 7.8 mg/dL (8.5-10.1); Creatinine, Blood 0.43 mg/dL (0.60-1.20); Potassium, Blood 3.9 mmol/L (3.5-5.5)
--- NOTE | 2022-04-10 14:06 | NUR ---
04/10/22 1406 Roya Andres [facility] [place]. PRESSLEY; SEE ANESTHESIA RECORDS.
--- NOTE | 2022-04-10 14:40 | NUR ---
Spiritual care visit conducted. Pt is not in the rm, family are present (sons, Ervin and Elliot) and they are told he was getting the feeding tube placed. They then talk about their concerns about pt's overall health going forward and his care after d/c. Pt is very family oriented and will not do well in a facility. I provide therapeuitc listening and a calming presence. THey respond well and show signs of reduced stress.
--- NOTE | 2022-04-10 15:59 | NUR ---
Pt recently returned from PEG placement. He tolerated it well, is alert and oriented. He c/o pain in abd, moaning, guarding abdomen at the PEG tube site. He is requesting pain medication, which is very unusual for him. His 2 sons at bedside agree. Requested 25mcg Fentanyl x's 1 now, as FLACC scale indicates moderate/severe pain. Dr. Benitez gave v/o for 25mcg Fentanyl IV now, and every 4 hrs prn r/t post surgical pain. Pt remains NPO, and family remains hopeful pt will be able to regain his swallow ability. Plan is for SNF after hospital stay, and live with one of his sons afterwards. Pt son stated the pt WILL relearn to swallow, and I gently reminded him this is not a guarantee, and he v/u but also stated he didn't appreciate the sentiment. However, the pt verbalized reservations and declined the PEG initially, but after 2 days of intense conversation with multiple family members, he did concede to PEG placement. Concern at times for pt's wishes not being fully recognized or respected by family, but will continue to educate family and encourage pt to continue making his wishes known.
--- NOTE | 2022-04-10 19:58 | NUR ---
SHIFT SUMMARY PT POD12 R HIP REPAIR, DRESSING CHANGED TODAY. S/P PEG TUBE PLACEMENT. PAIN MANAGED WITH FENT 25 MCGS, 2X. ZOFRAN GIVEN X1. REPORT GIVEN TO ANYA PITTS.
[2022-04-11 05:50] LABS: Hematocrit 25.1 % (37.0-53.0); Hemoglobin 8.7 g/dL (13.5-17.5)
--- NOTE | 2022-04-11 06:01 | NUR ---
SHIFT SUMMARY: PT WAS ABLE TO REST FOR THE MAJORITY OF THE NIGHT. ORAL CARE PROVIDED AND ENCOURAGED WITH THE PT. REMAINS EDEMATOUS T/O. HARRIS PATENT AND DRAINING TO GRAVITY. PPN RUNNING. ABD BINDER REMAINS IN PLACE. A&0X2-3 AT TIMES. PLEASANTLY CONFUSED. RESTING AT THIS TIME WITH CALL LIGHT IN REACH.
[2022-04-11 06:22] LABS: Albumin, Blood 1.8 g/dL (3.4-5.0); Anion Gap 8 mmol/L (6-16); Blood Urea Nitrogen 23 mg/dL (8-24); Bun/Creatinine Ratio 59.6 (12.0-20.0); CO2, Blood 22 mmol/L (21-32); Calcium, Blood 7.9 mg/dL (8.5-10.1); Chloride, Blood 101 mmol/L (98-108); Creatinine, Blood 0.39 mg/dL (0.60-1.20); Glomerular Filtration Rate 110 (60-); Glucose, Blood 189 mg/dL (70-99); Phosphorus, Blood 2.3 mg/dL (2.5-4.9); Potassium, Blood 3.9 mmol/L (3.5-5.5); Sodium, Blood 131 mmol/L (136-145)
--- NOTE | 2022-04-11 19:14 | NUR ---
SHIFT SUMMARY PT A&O3 TODAY, PLEASANT AND COOPERATIVE WITH CARE. NPO, PEG TUBE (POD1 PLACEMENT) FEEDINGS STARTED AND PT TOLERATING WELL; MEDS CRUSHED AND FLUSHED IN PEG. POD13 R HIP NAILING, AQUACEL CDI/CHANGED 04/10. PAIN TREATED WITH FENT 25 MCGS ONCE, DENIED NEED FOR PAIN MEDS SINCE. N&V TREATED ONCE, DENIED N&V SINCE. HARRIS PATENT & DRAINING CLARKE URINE, STAT LOCK ON, OFF FLOOR. REPORT PROVIDED TO DEANNA PITTS.
[2022-04-12 05:22] LABS: Hematocrit 26.7 % (37.0-53.0); Hemoglobin 9.1 g/dL (13.5-17.5)
[2022-04-12 05:45] LABS: Albumin, Blood 1.8 g/dL (3.4-5.0); Anion Gap 7 mmol/L (6-16); Blood Urea Nitrogen 19 mg/dL (8-24); CO2, Blood 24 mmol/L (21-32); Calcium, Blood 8.2 mg/dL (8.5-10.1); Chloride, Blood 101 mmol/L (98-108); Glomerular Filtration Rate 110 (60-); Glucose, Blood 169 mg/dL (70-99); Magnesium, Blood 1.9 mg/dL (1.6-2.4); Phosphorus, Blood 3.1 mg/dL (2.5-4.9); Potassium, Blood 4.2 mmol/L (3.5-5.5); Sodium, Blood 132 mmol/L (136-145); Triglycerides 76 mg/dL (30-160)
--- NOTE | 2022-04-12 06:11 | NUR ---
SHIFT SUMMARY POD 2 FOR PEG TUBE PLACEMENT. CONTINUOUS FEEDS RUNNING @35ML/HR, TOLERATING, NO RESIDUAL WHEN CHECKED. REPORTED NAUSEA 1X & MEDICATED c ZOFRAN, NO FURTHER NAUSEA REPORTED. DENIES DYSPNEA & PAIN. AOX4 @BEGINNING OF SHIFT, NIGHT PROGRESSED PT HAD INCREASED INTERMITTANT CONFUSION, FORGETING WHERE HE WAS, TOWN, THE HOSPITAL, WHY HE WAS HERE. PT REPORTS SEEING A MAN IN HIS RM & ASKED THIS NURSE "WHO ARE THOSE GUYS BEHIND YOU?" WHEN NO ONE ELSE WAS BEHIND ME. THIS AM PT IS YELLING OUT & WHEN I GO INTO RM HE STATES "I WANT TO GO BACK TO THE RM I WAS IN" OCCASIONAL FORGETFULNESS & CONFUSION. DENIES PAIN, OR DYSPNEA. POD 14 FOR R HIP FX/REPAIR- AQUACEL DRESSING C/D/I, POWDERED GROIN & SKIN FOLDS. HARRIS PATENT & DRAINING. CALL LIGHT IN REACH & PT FORGETS TO USE, BED ALARM IN PLACE. WILL MONITOR.
--- NOTE | 2022-04-12 12:52 | NUR ---
PEG TUB FEED PER NOC RN REPORT, PEG TUBE FEEDING TO BE ADJUSTED AT INCREMENTS OF 10ML/HR EVERY 8 HOURS UNTIL THE TARGET RATE IS ACHIEVED OF 65ML/HR. NO RESIDUAL CHECKS ORDERED AT THIS TIME, NO C/O ABD PAIN OR TENDERNESS AT THIS TIME. TUBE FEED ADJUSTED FROM 35ML/HR TO 45ML/HR @ 1225 TODAY 04/12/2022. NO ACUTE CHANGES AT TIME OF ADJUSTMENT OR UP TO THE TIME OF THIS NOTE, FAMILY HAS REMAINED AT THE BEDSIDE. WILL CTM.
--- NOTE | 2022-04-12 17:16 | NUR ---
SHIFT SUMMARY POD 2 PEG TUBE PLACEMENT, A/O X3-4 WITH INTERMITTENT CONFUSION/DISORIENTATION, PT REMAINS WEAK AND UNABLE TO GET OUT OF BED THOUGH HE IS WORKING WITH PHYSICAL THERAPY WHILE HE IS HERE. ST ASSESSED PT TODAY AND NOTED HE FATIGUES QUICKLY AND IS STILL NPO, TUBE FEED RATE INCREASED TO 45ML/HR AND HE IS TOLERATING IT WELL. NO ACUTE EVENTS THIS SHIFT, CALL LIGHT IN REACH, WILL CTM AND REPORT TO ONCMOANAYELI KAHN RN.
--- NOTE | 2022-04-12 18:18 | NUR ---
FEED RATE ADJUSTMENT FEEDING RATE INCREASED TO 55ML/HR AT THIS TIME
--- NOTE | 2022-04-12 22:37 | NUR ---
TUBE FEEDING AROUND 2144 CHECKED PEG TUBE FOR RESIDUAL AFTER FLUSING c 40ML WATER, GOT 100ML RESIDUAL BACK. FLUSHED c ANOTHER 40ML & GOT ANOTHER 45ML RESIDUAL, TOTALING 145ML RESIDUAL, YELLOW IN COLOR c CHUNKS OF UNDIGESTED MATERIAL. STOPPED TUBE FEEDING PER CHARGE NURSE ROSI Gonzalez. PT REPORTS NAUSEA & ALLOVER ABD PAIN, MEDICATED c IV ZOFRAN & TYLENOL. HYPOACTIVE BT. PREVIOUS NIGHT NO RESIDUAL NOTED WHEN CHECKED, HOWEVER FEEDING INCREASED TODAY FROM 35ML TO 55ML. INFORMED DR MACIAS OF CHANGES & NO NEW ORDERS GIVEN, SHE STATED OKAY TO RESUME FEEDING AT THIS TIME. AFTER TALKING c NOTED PT HASNT HAD A BM CHARTED SINCE ARRIVING TO HOSPITAL, WILL START BOWEL CARE & MONITOR.
[2022-04-13 04:40] LABS: BASOPHILS ABSOLUTE AUTO 0.03 K/mm3 (0.00-0.23); BASOPHILS PERCENT AUTO 1 % (0-2); EOSINOPHILS ABSOLUTE AUTO 0.23 K/mm3 (0.00-0.68); EOSINOPHILS PERCENT AUTO 4 % (0-6); Hematocrit 28.5 % (37.0-53.0); Hemoglobin 9.3 g/dL (13.5-17.5); IMMATURE GRAN ABSOLUTE AUTO 0.03 K/mm3 (0.00-0.10); IMMATURE GRAN PERCENT AUTO 1 % (0-1); LYMPHOCYTES ABSOLUTE AUTO 1.28 K/mm3 (0.84-5.20); LYMPHOCYTES PERCENT AUTO 19 % (21-46); MONOCYTES ABSOLUTE AUTO 0.64 K/mm3 (0.16-1.47); MONOCYTES PERCENT AUTO 10 % (4-13); Mean Corpuscular HGB Conc 32.6 g/dL (31.5-36.5); Mean Corpuscular Volume 98 fL (80-100); Mean Platelet Volume 9.8 fL (9.1-12.4); NEUTROPHILS ABSOLUTE AUTO 4.44 K/mm3 (1.96-9.15); NEUTROPHILS PERCENT AUTO 67 % (41-73); Platelet Count 457 K/mm3 (150-400); RDW Coefficient Variation 17.2 % (11.7-14.2); RDW Standard Deviation 61.6 fL (35.1-46.3); Red Blood Cell Count 2.91 M/mm3 (4.30-5.90); White Blood Cell Count 6.65 K/mm3 (4.00-11.30)
[2022-04-13 04:58] LABS: Albumin, Blood 1.9 g/dL (3.4-5.0); Albumin/Globulin Ratio 0.6 (0.8-1.8); Bilirubin, Total 1.4 mg/dL (0.1-1.0); Bun/Creatinine Ratio 54.1 (12.0-20.0); Calcium, Blood 7.8 mg/dL (8.5-10.1); Creatinine, Blood 0.43 mg/dL (0.60-1.20); Globulin, Blood 3.4 g/dL (2.2-4.0); Potassium, Blood 4.2 mmol/L (3.5-5.5); Total Protein, Blood 5.3 g/dL (6.4-8.2)
--- NOTE | 2022-04-13 06:39 | NUR ---
SHIFT SUMMARY AOX2-3/4. UNAWARE PLACE OR SITUATION AT TIMES. GETS INTERMITTANT CONFUSION & AGITATION. REPORTS ALLOVER ABD PAIN ALONG c HIP DISCOMFORT, MEDICATED 1X c TYLENOL. REPORTS NAUSEA, MEDICATED 1X c ZOFRAN. PEG TUBE RUNNING CONTINUOUS FEEDING AT 65ML/HR STARTED @0430. NOTED NO BM CHARTED SINCE ADMISSION, STARTED BOWEL CARE. HARRIS PATENT & DRAINING. CALL LIGHT IN REACH, HOWEVER PT YELLS INSTEAD OF USING. WILL MONITOR.
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
[2022-04-14 04:52] LABS: Albumin, Blood 1.9 g/dL (3.4-5.0); Albumin/Globulin Ratio 0.6 (0.8-1.8); Bun/Creatinine Ratio 48.1 (12.0-20.0); Calcium, Blood 8.5 mg/dL (8.5-10.1); Creatinine, Blood 0.46 mg/dL (0.60-1.20); Globulin, Blood 3.3 g/dL (2.2-4.0); Potassium, Blood 4.6 mmol/L (3.5-5.5); Total Protein, Blood 5.2 g/dL (6.4-8.2)
--- NOTE | 2022-04-14 07:44 | NUR ---
SHIFT SUMMARY AOX2-4, MENTATION WAXES & WANES. FORGETFUL & CONFUSED AT TIMES. PT UP IN RECLINER AT BEGINNING OF SHIFT, 2 MAX ASSIST c LIFT TO PLACE BACK INTO BED. VSS. REPORTED PAIN IN BILAT HIPS LAST NIGHT, MEDICATED 1X c TYLENOL & NO FURTHER DISCOMFORT REPORTED. REPORTED NAUSEA, ABD TENDERNESS, MEDICATED c ZOFRAN & GAVE BOWEL CARE MEDS SINCE NO BM CHARTED-NO BM THIS SHIFT. HARRIS PATENT & DRAINING DARK ORANGE URINE. PEG TUBE FEEDING RUNNING @65ML/HR. CALL LIGHT IN REACH & BED ALARM IN PLACE.
--- NOTE | 2022-04-14 10:18 | NUR ---
IV REMOVED. IV REMOVED FROM RFA, 22G IV WAS INFILTRATED AT TIME OF ASSESSMENT.
--- NOTE | 2022-04-14 11:00 | NUR ---
DR. CHARLTON ROUNDED THIS AM. DISCUSSED HARRIS CATH REMOVAL AND MEDICATIONS FOR PROSTATE CA (PT IS UNABLE TO TAKE THESE MEDICATIONS BECAUSE THEY CANNOT BE CRUSHED). BOWEL CARE DISCUSSED AND ADJUSTMENTS MADE TO ORDERS. WILL CONTINUE TO MONITOR.
--- NOTE | 2022-04-14 17:04 | NUR ---
Spoke to pt's son Avi by phone today; he reports he has been noticing his dad continues to look like he's losing weight, andd continues with tube feeding as ordered. Today pt was asking OT if he "could please eat", but he is currently NPO due to aspiration risk. He did work with ST today, but requested they stop as pt states he it too tired to continue. It appears the pt is still recommended for longterm, but pt has begun making freqeunt statements about wanting to go home, wanting to eat real food. Avi states he wants to do what his dad wants, and plans to ask him tonight if he still wants to go home, and if so, he will speak to "the family" about it before making any further plans.
--- NOTE | 2022-04-14 18:58 | NUR ---
Family requested a meeting at bedside this evening. All 3 brothers present. Both Ervin and Avi agree they would like to take pt home to eat what he wants and "be surrounded by family". Elliot is also wanting pt to go to Avi's house, but hopeful that pt will relearn to walk and eat in therapy. Pt declined for UV today, has been submitted to . Pt using a devonte. Family unable to come to agreement oralia, agree to meet with physician tomorrow to disuss this plan of care.
--- NOTE | 2022-04-14 19:47 | NUR ---
SHIFT SUMMARY PT WAS OOB TO THE CHAIR FOR MUCH OF THE DAY. HE IS A 2-3 PERSON ASSIST WITH THE VANDER LIFT, PT TOLERATES WELL. PT DOES COMPLAIN OF PAIN WITH MOVEMENT AND HAS TAKEN TYLENOL FOR PAIN MANAGEMENT. PT WAS TOLERATING CONTINUOUS FEEDS BUT HAS BEEN CHANGED TO BOLUS FEEDS; FIRST BOLUS FEED GIVEN AT 1850 AND PT TOLERATED WELL. PT'S FAMILY MET WITH JUDITH FROM PALLIATIVE CARE TODAY. PT'S FAMILY CONTINUES TO ASK WHEN PT CAN EAT, HIS SON TOLD STAFF HE GAVE HIM A DRINK OF SODA THIS AFTERNOON, EDUCATION WAS PROVIDED TO FAMILY BY THIS RN AND SPEECH THERAPY. WILL MONITOR UNTIL REPORT TO NOC RN.
--- NOTE | 2022-04-14 21:14 | NUR ---
SLICK REMOVED FROM R HIP, NEW MEDIPORE DRESSING PLACED. SCANT SEROSANGUINEOUS DRAINAGE NOTED, 1+ EDEMA WITH SOME BRUISING NOTED.
--- NOTE | 2022-04-15 05:07 | NUR ---
SHIFT SUMMARY NO ACUTE EVENTS THIS SHIFT. TOLERATED MEDS PER TUBE WITH FLUSHES. SMALL BM WITH LOOSE LIQUID STOOL. CLEAN ATTENDS IN PLACE. VOIDS WELL. BLOOD GLUCOSE AND VSS, THIS SHIFT. IV TO L WRIST PATENT. PATIENT IS PAINFUL WITH REPOSITIONING BUT DOES RESOLVE WITH REST. WARM BLANKET FOR COMFORT. BED ALARM FOR SAFETY. FAMILY TO BE IN FOR MEETING @ 1100 TO MAKE UPDATED PLAN OF CARE. WILL CONTINUE TO MONITOR.
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
--- NOTE | 2022-04-15 12:55 | NUR ---
PLACED COMFORT CARE ORDER SET AND DCD MAINTENANCE MEDICATIONS PER VO FROM DR CHARLTON.
--- NOTE | 2022-04-15 13:33 | NUR ---
Joint visit with Dr Hernández, PC GISSELLE Kent, and this PC RN. Pt resting in bed upon arrival. Family at bedside. Dr Hernández provides update and review plan of care options. Active listening and emotional support offered. Discussed comfort care and hospice as an option. Educated on comfort care and hospice philosophy with V/U made by family. Pt indicates his wishes are to return home with family and focus on comfort. Discussed hospice agencies to choose from and provided brochures. PC GISSELLE Kent places comfort care orders per V/O from Dr Hernández. Palliative Care will remain available.
--- NOTE | 2022-04-15 13:34 | NUR ---
Spiritual care visit conducted. Pt is resting and only engages in conversation with intentional questions asking his opinion. Son, Avi, and other family members are present. Avi tells me about the family decision to honor the patient's wishes to allow him to go home. Pt agrees to this knowing the risks and the meaning of hospice care. I spend some time with Avi as he shares about how difficult it is to make this decision and how much his dad is loved by the family. I spend a few minutes one on one with the pt who still continues to have one goal: to get home and eat a hamburger. I also provide prayer for him and the family. They all voice their appreciation for the care received from the spiritual care department. I will continue to remain available to pt and family.
--- NOTE | 2022-04-15 14:27 | NUR ---
Supportive F/U visit. Spoke with Primary RN Jenny who reports family may benefit from education re-enforcement regarding end of life care. Pt resting in bed and appears comfortable with no S/S of distress at this time. Family at bedside. Offered active listening as family expresses concerns regarding Pt eating, not eating, and feeding tube. Gentle education on end of life process and addressed misconceptions. Continued supportive visit and answered questions. Family reports still deliberating on hospice agency choice. Family expresses appreciation and reports no other concerns at this time. Palliative Care will remain available.
--- NOTE | 2022-04-15 16:20 | NUR ---
DNR BAND PLACED. ORDER VERIFIED WITH TAURUS PITTS PRIOR TO PLACEMENT.
--- NOTE | 2022-04-15 16:20 | NUR ---
ROUNDING/PERSONAL CARE/REPOSITIONING PT REQUIRED AN ATTENDS CHANGE, BHARGAVI CARE PROVIDED. HARRIS CATHETER PLACED FOR COMFORT SINCE PT IS PAINFUL WITH TURNING FOR ATTENDS CHANGES. MEPILEX HEAL PROTECTOR DRESSING PLACED. ALLEVYN DRESSING PLACEDON COCCYX FOR PREVENTION. BARRIER CREAM APPLIED TO BUTTOCKS. PT TRYING TO PULL AT HIS PEG TUBE, SECURED WITH TAPE AND ABD BINDER REPOSITIONED. IV FROM L WRIST REMOVED. PT WAS REPOSITIONED AND HEALS FLOATED. WILL CONTINUE TO MONITOR.
--- NOTE | 2022-04-15 17:01 | NUR ---
HARRIS CATH PLACEMENT PT TOLERATED WELL BUT HAD SOME DISCOMFORT DURING CATHETER PLACEMENT. DISCOMFORT RESOLVED ONCE CATHETER WAS PLACED.
--- NOTE | 2022-04-15 17:07 | NUR ---
SHIFT SUMMARY PT'S FAMILY HAS BEEN AT THE BEDSIDE FOR SUPPORT THIS AFTERNOON. PT TRANSITIONED TO COMFORT CARE TODAY. FAMILY HAS BEEN PROVIDED SUPPORT BY CARE TEAM. PT IS BEING REPOSITIONED. ATTENDS IN PLACE PT IS INCONTINENT OF BOWEL. HARRIS CATH PLACED BECAUSE, PT IS UNCOMFORTABLE WITH ATTENDS CHANGES. PAIN HAS BEEN MANAGED WITH TYLENOL WHILE PT IS AT REST. WILL MONITOR UNTIL REPORT TO NOC RN.
--- NOTE | 2022-04-16 00:07 | NUR ---
FAMILY AT BEDSIDE REQUESTED SEROQUEL TO HELP PATIENT SLEEP. TALKED WITH FAMILY ABOUT PLANS OF WHERE PATIENT DEMARIO DISCHARGE HOME VS SNF. PATIENT AND FAMILY ARE ADAMANT THAT THEY ARE WANTING TO TAKE PATIENT HOME ON HOSPICE. FAMILY PREFERS [facility]. MEDICATED PATIENT WITH SEROQUEL AND REPOSITIONED TO COMFORT. FAMILY WOULD LIKE PALLIATIVE CARE TO CALL THEM TO SET UP A TIME AND TALK ABOUT [facility].
--- NOTE | 2022-04-16 04:59 | NUR ---
SHIFT SUMMARY PATIENT AOX2-3. MEDICATED FOR PAIN AT START OF SHIFT. PATIENT TURNED Q2 MEDICATED FOR SLEEP, FAMILY REQUESTED SEROQUEL. PATIENT AND FAMILY TALKED ABOUT GOING HOME ON HOSPICE AND FAMILY HAS SPECIFIED WANTING TO MEET WITH PALLIATIVE CARE AGAIN TODAY TO GO OVER THEIR CHOICES. HARRIS CATH IS DRAINING TO GRAVITY, STAT LOCK IN PLACE. PEG TUBE FLUSHED AND COVERED WITH ABD BINDER. PATIENT RESTS WELL T/O SHIFT, CALL LIGHT IN REACH, BED ALARM FOR SAFETY.
--- NOTE | 2022-04-16 11:48 | NUR ---
REPOSITIONED TO LEFT SIDE.
--- NOTE | 2022-04-16 11:49 | NUR ---
REPOSITIONED RIGHT SIDE
--- NOTE | 2022-04-16 11:50 | NUR ---
REPOSITIONED RIGHT SIDE
--- NOTE | 2022-04-16 13:08 | NUR ---
CATH CARE, BHARGAVI CARE, POWDER APPLIED. REPOSITIONED RIGHT SIDE. PEG TUBE DRESSING CHANGED.
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
--- NOTE | 2022-04-16 16:41 | NUR ---
REPOSITIONED LEFT SIDE. HEELS FLOATED.
--- NOTE | 2022-04-16 19:38 | NUR ---
PATIENT REPOSITIONED SUPINE. HOB ELEVATED AND PROVIDED WITH SIPS OF WATER AND A COUPLE BITES OF DINNER BEFORE PATIENT STATED HE FELT NAUSEATED AND DIDN'T WANT ANYMORE FOOD.
--- NOTE | 2022-04-16 19:39 | NUR ---
SHIFT SUMMARY COMFORT CARE. REPOSITIONED Q2 HR. PEG TUBE AND CATH CARE COMPLETED THIS SHIFT. OFFERED SIPS OF WATER AND BITES OF PUREED DIET. TOLERATED A FEW SIPS AND BITES THROUGHOUT DAY. PLAN IS TO DISCHARGE HOME TOMORROW 04/17/22 ON HOSPICE WITH FAMILY. FAMILY PRESENT IN ROOM THROUGHOUT DAY.
--- NOTE | 2022-04-17 03:43 | NUR ---
DRESSER TENDER SUMMARY PT CONTINUES COMFORT CARE MEASURES. PT IS PLEASANT AND COOPERATIVE WITH CARE, CAN MAKE NEEDS KNOWN. MEDICATED FOR PAIN AT START OF SHIFT WITH 5MG ROXANOL WITH GOOD EFFECT. PT RECIEVED FULL BED BATH BEFORE BED. MEDICATED PT WITH SEROQUEL PER REQUEST OF PT'S FAMILY TO HELP PT REST, PT HAS RESTED COMFORTABLY SINCE. PT EXCITED TO BE DISCHARGED HOME LATER TODAY. WILL CONTINUE TO MONITOR.
--- NOTE | 2022-04-17 10:40 | NUR ---
1040 discharged via transport journey to transport to family members home. [place] in pl;[place]. pt is in agreement with plan to discharge
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
== END 2022-04-17 10:40 | disposition hospice, home (50) | DRG 480 ==
LOC: ER 19:50 → PCU 03-29 00:28 → SURS 03-29 00:28 → ICUE 03-29 00:28 → ICUW 03-29 00:28 → ICUE 03-29 04:05 → PCU 04-01 18:30 → SURS 04-04 16:00
PROVIDERS: Family Medicine; Family Medicine Adult Medicine; Internal Medicine; Orthopaedic Surgery; Student in an Organized Health Care Education/Training Program; ADMIT Surgery
PROC: 3E0234Z Introduction of Serum, Toxoid and Vaccine into Muscle, Percutaneous Approach (ICD-10-PCS; 2022-03-28)
PROC: 30233N1 Transfusion of Nonautologous Red Blood Cells into Peripheral Vein, Percutaneous Approach (ICD-10-PCS; 2022-03-29)
PROC: 30233L1 Transfusion of Nonautologous Fresh Plasma into Peripheral Vein, Percutaneous Approach (ICD-10-PCS; 2022-03-29)
PROC: 30233K1 Transfusion of Nonautologous Frozen Plasma into Peripheral Vein, Percutaneous Approach (ICD-10-PCS; 2022-03-29)
PROC: 0QS636Z Reposition Right Upper Femur with Intramedullary Internal Fixation Device, Percutaneous Approach (ICD-10-PCS; principal; 2022-03-29 15:00)
PROC: 0DH63UZ Insertion of Feeding Device into Stomach, Percutaneous Approach (ICD-10-PCS; 2022-04-10)
DX: S72.141A Displaced intertrochanteric fracture of right femur, initial encounter for closed fracture (principal); G93.41 Metabolic encephalopathy; I63.9 Cerebral infarction, unspecified; J96.01 Acute respiratory failure with hypoxia; T79.4XXA Traumatic shock, initial encounter; S22.43XA Multiple fractures of ribs, bilateral, initial encounter for closed fracture; I48.20 Chronic atrial fibrillation, unspecified; E87.1 Hypo-osmolality and hyponatremia; D62 Acute posthemorrhagic anemia; E46 Unspecified protein-calorie malnutrition; R65.10 Systemic inflammatory response syndrome (SIRS) of non-infectious origin without acute organ dysfunction; J95.89 Other postprocedural complications and disorders of respiratory system, not elsewhere classified; J98.11 Atelectasis; M96.840 Postprocedural hematoma of a musculoskeletal structure following a musculoskeletal system procedure; Z23 Encounter for immunization; Z20.822 Contact with and (suspected) exposure to COVID-19; Z51.5 Encounter for palliative care; R45.1 Restlessness and agitation; R47.1 Dysarthria and anarthria; I10 Essential (primary) hypertension; I95.9 Hypotension, unspecified; E11.9 Type 2 diabetes mellitus without complications; E83.42 Hypomagnesemia; D64.9 Anemia, unspecified; Z85.46 Personal history of malignant neoplasm of prostate; Z98.890 Other specified postprocedural states; Z79.899 Other long term (current) drug therapy; V48.1XXA Car passenger injured in noncollision transport accident in nontraffic accident, initial encounter; Y92.410 Unspecified street and highway as the place of occurrence of the external cause; Y83.1 Surgical operation with implant of artificial internal device as the cause of abnormal reaction of the patient, or of later complication, without mention of misadventure at the time of the procedure
CPT/HCPCS: 0241U; 36415; 36430; 51702; 70450; 70491; 71045; 71046; 71250; 71260; 72125; 72170; 73120; 73552; 74176; 74177; 74230; 80047; 80048; 80053; 80069; 81001; 82040; 82330; 82947; 83605; 83735; 83880; 84100; 84145; 84478; 84484; 85014; 85018; 85025; 85027; 85610; 85730; 86850; 86900; 86901; 86923; 87040; 87086; 90471; 90714; 92526; 92610; 92611; 93005; 93010; 93306; 93880; 94640; 94660; 94664; 94760; 94762; 96374-59; 96375-59; 96376-59; 97110; 97112; 97162; 97166; 97530; 99285-25; A9270; C1713; C1776; C9113; J0360; J0610; J0690; J0696; J1100; J1170; J1200; J1630; J1815; J1885; J1940; J2250; J2405; J2704; J2795; J3010; J3411; J3475; J3480; J7030; J7042; J7050; J7060; J7120; J7131; P9016; P9035; P9059; Q9967